=== PATIENT | male | born 1960 | race Hispanic/Latino ===

== ENCOUNTER 2022-04-26 03:10 | Inpatient (IN) | payer OTHER ==
[2022-04-26] MEDS ORDERED: SODIUM CHLORIDE 0.9% 1000 ML 1,000 ML IV ONE (03:42)
[2022-04-26] MEDS ORDERED: PANTOPRAZOLE 40 MG INJ IV ONE (03:42)
[2022-04-26 05:09] LABS: Alanine Aminotransferase 10 units/L (7-56); Albumin 2.8 g/dL (3.9-5); BUN/Creatinine Ratio 20; Blood Urea Nitrogen 22 mg/dL (9-20); Calcium 8.1 mg/dL (8.4-10.2); Hemolysis Index 4
[2022-04-26 05:10] LABS: INR 1.15 (0.87-1.13)
[2022-04-26 05:21] LABS: Basophils % (Auto) 0.5 % (0.0-1.8); Eosinophils # (Auto) 0.1 K/mm3 (0.0-0.4); Eosinophils % (Auto) 1.7 % (0.0-4.3); Hematocrit 28.5 % (35.5-45.6); Hemoglobin 9.3 gm/dl (11.8-15.2); Mean Corpuscular HGB Conc 33 % (32-34); Mean Corpuscular Volume 92 fl (84-94); Monocytes # (Auto) 0.5 K/mm3 (0.0-0.8); Monocytes % (Auto) 8.9 % (0.0-7.3); Platelet Count 146 K/mm3 (140-440); Red Blood Count 3.09 M/mm3 (3.65-5.03); Red Cell Distribution Width 14.8 % (13.2-15.2)
--- NOTE | 2022-04-26 06:22 | Emergency Department Report ---
<NAYANA PADILLA - Last Filed: 04/26/22 10:00> ED GI Bleed HPI - General Chief complaint: GI Bleed Stated complaint: RECTAL BLEEDING Time Seen by Provider: 04/26/22 03:42 - Related Data Home Medications Medication Instructions Recorded Confirmed Last Taken Docusate Sodium [Colace ORAL LIQ] 100 mg PO QDAY 04/26/22 04/26/22 Unknown Duloxetine HCl [Cymbalta] 20 mg PO QDAY 04/26/22 04/26/22 Unknown Pantoprazole [Protonix TAB] 20 mg PO QDAY 04/26/22 04/26/22 Unknown QUEtiapine [SEROquel] 100 mg PO HS 04/26/22 04/26/22 Unknown Thiamine [Vitamin B-1] 100 mg PO QDAY 04/26/22 04/26/22 Unknown carvediloL [Coreg] 3.125 mg PO BID 04/26/22 04/26/22 Unknown Allergies Allergy/AdvReac Type Severity Reaction Status Date / Time No Known Allergies Allergy Verified 04/26/22 04:02 ED Past Medical Hx - Medications Home Medications: Home Medications Medication Instructions Recorded Confirmed Last Taken Type Docusate Sodium [Colace ORAL LIQ] 100 mg PO QDAY 04/26/22 04/26/22 Unknown History Duloxetine HCl [Cymbalta] 20 mg PO QDAY 04/26/22 04/26/22 Unknown History Pantoprazole [Protonix TAB] 20 mg PO QDAY 04/26/22 04/26/22 Unknown History QUEtiapine [SEROquel] 100 mg PO HS 04/26/22 04/26/22 Unknown History Thiamine [Vitamin B-1] 100 mg PO QDAY 04/26/22 04/26/22 Unknown History carvediloL [Coreg] 3.125 mg PO BID 04/26/22 04/26/22 Unknown History ED Course - Consultations Consultation #1: 04/26/22 09:52 Dr Ailyn Matamoros consulted who accept this patient for Dr Martinez and wanted GI consulted as well as this patient might needed to be scoped source of bleeding Consultation #2: 04/26/22 10:01 Dr Nicole consulted who plan to follow up with this patient for likely scope ED Medical Decision Making - Lab Data Result diagrams: 04/26/22 04:42 04/26/22 03:42 - Radiology Data FINDINGS: LOWER CHEST: Moderate basilar effusions with associated atelectasis. LIVER: Cirrhotic configuration. GALLBLADDER: No significant abnormality. BILE DUCTS: No significant abnormality. PANCREAS: No significant abnormality. SPLEEN: Enlarged measuring 17.7 cm ADRENALS: No significant abnormality. RIGHT KIDNEY / URETER: No significant abnormality. LEFT KIDNEY / URETER: No significant abnormality. STOMACH / SMALL BOWEL: No significant abnormality. COLON: Mild mucosal enhancement with questionable areas of mild thickening. APPENDIX: No significant abnormality. PERITONEUM: No free fluid. No free air. No fluid collection. LYMPH NODES: No significant adenopathy. 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 Small varices at the distal esophageal region. URINARY BLADDER: Symmetric thickening. REPRODUCTIVE ORGANS: No significant abnormality. ADDITIONAL FINDINGS: None. SKELETAL SYSTEM: No significant abnormality. IMPRESSION: 1. Evaluation limited by positioning. 2. Moderate basilar effusions with associated atelectasis. 3. Possible mild colitis. 4. Mild symmetric bladder wall thickening. 5. Cirrhosis with splenomegaly and varices/recanalization of the paraumbilical vein. - Medical Decision Making Lab reviewed and noted with low H&H with no previous visit or labs will assume this to be acute blood loss anemia -- and consider admission and have GI consulted. Dr Robertson consulted who accept pt for Dr Diggs -- Dr Nicole GI will be consulted as well. ED Disposition Clinical Impression: Colitis, Anemia, blood loss, Splenomegaly, Varices of spleen, Positive occult stool blood test GI bleeding Qualifiers: GI bleed type/associated pathology: unspecified gastrointestinal hemorrhage type Qualified Code(s): K92.2 - Gastrointestinal hemorrhage, unspecified Liver cirrhosis Qualifiers: Hepatic cirrhosis type: unspecified hepatic cirrhosis Ascites presence: unspecified Qualified Code(s): K74.60 - Unspecified cirrhosis of liver Disposition: ADMITTED INPATIENT Is pt being admited?: Yes Does the pt Need Aspirin: No Condition: Stable Time of Disposition: 10:01 <ARMIN MCKENZIE - Last Filed: 04/28/22 06:05> ED GI Bleed HPI - General Source: patient, EMS Mode of arrival: Stretcher Limitations: No Limitations - History of Present Illness Initial comments: PATIENT IS FROM [facility] AND HAS THE COMPLAINT OF A GI BLEED X1 EPISODE complaint: blood streaked stool -: hour(s) Radiation: none Consistency: now resolved Improves with: none Worsens with: none ED Review of Systems ROS: Stated complaint: RECTAL BLEEDING Other details as noted in HPI Comment: Unobtainable due to pts medical conditions ED Past Medical Hx - Past Medical History Previous Medical History?: No Hx Hypertension: No ED Physical Exam - General Limitations: No Limitations General appearance: other (NON VERABL BASLINE ) - Head Head exam: Present: atraumatic, normocephalic - Eye Eye exam: Present: normal appearance - ENT ENT exam: Present: mucous membranes moist - Neck Neck exam: Present: normal inspection - Respiratory Respiratory exam: Present: normal lung sounds bilaterally. Absent: respiratory distress - Cardiovascular Cardiovascular Exam: Present: regular rate, normal rhythm. Absent: systolic murmur, diastolic murmur, rubs, gallop - GI/Abdominal GI/Abdominal exam: Present: soft - Rectal Rectal exam: Present: deferred, heme (+) stool - Extremities Exam Extremities exam: Present: normal inspection - Back Exam Back exam: Present: normal inspection - Neurological Exam Neurological exam: Present: alert, oriented X3 - Psychiatric Psychiatric exam: Present: normal affect, normal mood - Skin Skin exam: Present: warm, dry, intact, normal color. Absent: rash ED Course Vital Signs 04/26/22 04/26/22 04/26/22 06:31 06:46 07:00 Temperature Pulse Rate 119 H 88 106 H Respiratory 13 15 13 Rate Blood Pressure 98/60 97/56 97/65 O2 Sat by Pulse 99 100 99 Oximetry 04/26/22 04/26/22 04/26/22 07:16 07:30 08:09 Temperature Pulse Rate 101 H 104 H 107 H Respiratory 12 12 11 L Rate Blood Pressure 82/47 86/50 O2 Sat by Pulse 100 100 99 Oximetry 04/26/22 04/26/22 04/26/22 09:00 10:01 11:01 Temperature Pulse Rate 98 H 113 H 103 H Respiratory 12 12 12 Rate Blood Pressure 86/50 92/62 97/62 O2 Sat by Pulse 100 99 100 Oximetry 04/26/22 04/26/22 12:01 13:10 Temperature 98.3 F Pulse Rate 104 H 116 H Respiratory 11 L 19 Rate Blood Pressure 91/58 102/75 O2 Sat by Pulse 100 93 Oximetry ED Medical Decision Making - Lab Data Result diagrams: 04/27/22 21:46 04/26/22 03:42 - Medical Decision Making WORK UP SHWOED REYNALDO H.H AND VSS , HANDED OVER TO DR DE LEON AT [address] DISPO AND ADMISSION Critical care attestation.: If time is entered above; I have spent that time in minutes in the direct care of this critically ill patient, excluding procedure time.
--- NOTE | 2022-04-26 08:36 | Cat Scan Report ---
CT ABDOMEN AND PELVIS WITH CONTRAST INDICATION / CLINICAL INFORMATION: PAIN. TECHNIQUE: Axial CT images were obtained through the abdomen and pelvis after Omnipaque 350, 100 cc I V contrast. All CT scans at this location are performed using CT dose reduction for ALARA by means o f automated exposure control. Evaluation is limited by positioning. COMPARISON: None available. FINDINGS: LOWER CHEST: Moderate basilar effusions with associated atelectasis. LIVER: Cirrhotic configuration. GALLBLADDER: No significant abnormality. BILE DUCTS: No significant abnormality. PANCREAS: No significant abnormality. SPLEEN: Enlarged measuring 17.7 cm ADRENALS: No significant abnormality. RIGHT KIDNEY / URETER: No significant abnormality. LEFT KIDNEY / URETER: No significant abnormality. STOMACH / SMALL BOWEL: No significant abnormality. COLON: Mild mucosal enhancement with questionable areas of mild thickening. APPENDIX: No significant abnormality. PERITONEUM: No free fluid. No free air. No fluid collection. LYMPH NODES: No significant adenopathy. 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 Small va rices at the distal esophageal region. URINARY BLADDER: Symmetric thickening. REPRODUCTIVE ORGANS: No significant abnormality. ADDITIONAL FINDINGS: None. SKELETAL SYSTEM: No significant abnormality. IMPRESSION: 1. Evaluation limited by positioning. 2. Moderate basilar effusions with associated atelectasis. 3. Possible mild colitis. 4. Mild symmetric bladder wall thickening. 5. Cirrhosis with splenomegaly and varices/recanalization of the paraumbilical vein. Signer Name: Steve Crain MD Signed: 04/26/2022 8:32 AM Workstation Name: [id number]
[2022-04-26] MEDS ORDERED: ONDANSETRON 4 MG/2 ML INJ IV PRN (09:53)
--- NOTE | 2022-04-26 16:53 | History and Physical Report ---
History of Present Illness Date of examination: 04/26/22 Date of admission: 04/26/22 09:53 Chief complaint: GI bleed Medications and Allergies Allergies Allergy/AdvReac Type Severity Reaction Status Date / Time No Known Allergies Allergy Verified 04/26/22 04:02 Home Medications Medication Instructions Recorded Confirmed Last Taken Type Docusate Sodium [Colace ORAL LIQ] 100 mg PO QDAY 04/26/22 04/26/22 Unknown History Duloxetine HCl [Cymbalta] 20 mg PO QDAY 04/26/22 04/26/22 Unknown History Pantoprazole [Protonix TAB] 20 mg PO QDAY 04/26/22 04/26/22 Unknown History QUEtiapine [SEROquel] 100 mg PO HS 04/26/22 04/26/22 Unknown History Thiamine [Vitamin B-1] 100 mg PO QDAY 04/26/22 04/26/22 Unknown History carvediloL [Coreg] 3.125 mg PO BID 04/26/22 04/26/22 Unknown History Active Meds: Active Medications Acetaminophen (Acetaminophen 325 Mg Tab) 650 mg PO Q4H PRN PRN Reason: Pain MILD(1-3)/Fever >100.5/JONES Carvedilol (Carvedilol 3.125 Mg Tab) 3.125 mg PO BID YASH Duloxetine HCl (Duloxetine 20 Mg Cap) 20 mg PO QDAY [facility] Sodium Chloride (Nacl 0.9% 1000 Ml) 1,000 mls @ 75 mls/hr IV DIRECT YASH Morphine Sulfate (Morphine 2 Mg/1 Ml Inj) 2 mg IV Q4H PRN PRN Reason: Pain, Moderate (4-6) Ondansetron HCl (Ondansetron 4 Mg/2 Ml Inj) 4 mg IV Q8H PRN PRN Reason: Nausea And Vomiting Pantoprazole Sodium (Pantoprazole 20 Mg Tab) 20 mg PO QDAY [facility] Quetiapine Fumarate (Quetiapine 100 Mg Tab) 100 mg PO HS [facility] Sodium Chloride (Sodium Chloride 0.9% 10 Ml Flush Syringe) 10 ml IV BID [facility] Last Admin: 04/26/22 13:38 Dose: Not Given Sodium Chloride (Sodium Chloride 0.9% 10 Ml Flush Syringe) 10 ml IV PRN PRN PRN Reason: LINE FLUSH Thiamine HCl (Thiamine 100 Mg Tab) 100 mg PO QDAY [facility] Exam - Constitutional Vitals: Temp Pulse Resp BP Pulse Ox 97.8 F 114 H 17 109/69 100 04/26/22 14:58 04/26/22 14:58 04/26/22 14:58 04/26/22 14:58 04/26/22 14:58 Results - Labs CBC & Chem 7: 04/26/22 04:42 04/26/22 03:42 Labs: Abnormal lab results 04/26/22 04/26/22 04/26/22 Range/Units 03:42 04:42 04:42 RBC 3.09 L (3.65-5.03) M/mm3 Hgb 9.3 L (11.8-15.2) gm/dl Hct 28.5 L (35.5-45.6) % Graham % (Auto) 8.9 H (0.0-7.3) % Lymph # (Auto) 1.0 L (1.2-5.4) K/mm3 Seg Neutrophils % 72.9 H (40.0-70.0) % PT 16.4 H (12.2-14.9) Sec. INR 1.15 H (0.87-1.13) Chloride 111.4 H (98-107) mmol/L BUN 22 H (9-20) mg/dL Glucose 104 H (75-100) mg/dL Calcium 8.1 L (8.4-10.2) mg/dL Alkaline Phosphatase 140 H (35-129) units/L Total Protein 6.2 L (6.3-8.2) g/dL Albumin 2.8 L (3.9-5) g/dL Assessment and Plan -- GI bleed --Acute colitis
[2022-04-26] MEDS: carvediloL 3.125 MG TAB PO SCH (21:03)
[2022-04-26] MEDS: QUEtiapine 100 MG TAB PO SCH (21:03)
[2022-04-26 23:58] LABS: Hematocrit 26.5 % (35.5-45.6); Hemoglobin 8.9 gm/dl (11.8-15.2)
--- NOTE | 2022-04-27 08:15 | Gastroenterology Consultation ---
History of Present Illness - Reason for Consult Consult date: 04/27/22 GI bleeding Requesting physician: NAYANA PADILLA - History of Present Illness [facility] episode of rectal bleeding Patient poor historian patient history obtained from chart and speaking with nursing staff Patient denies any GI bleeding Patient reports: Medical history none surgical history none Home medications none allergies none Denies tobacco or alcohol use, denies family history colorectal cancer Obtained/updated/reviewed patient's current medications Medications and Allergies Allergies Allergy/AdvReac Type Severity Reaction Status Date / Time No Known Allergies Allergy Verified 04/26/22 04:02 Home Medications Medication Instructions Recorded Confirmed Last Taken Type Docusate Sodium [Colace ORAL LIQ] 100 mg PO QDAY 04/26/22 04/26/22 Unknown History Duloxetine HCl [Cymbalta] 20 mg PO QDAY 04/26/22 04/26/22 Unknown History Pantoprazole [Protonix TAB] 20 mg PO QDAY 04/26/22 04/26/22 Unknown History QUEtiapine [SEROquel] 100 mg PO HS 04/26/22 04/26/22 Unknown History Thiamine [Vitamin B-1] 100 mg PO QDAY 04/26/22 04/26/22 Unknown History carvediloL [Coreg] 3.125 mg PO BID 04/26/22 04/26/22 Unknown History Active Meds: Active Medications Acetaminophen (Acetaminophen 325 Mg Tab) 650 mg PO Q4H PRN PRN Reason: Pain MILD(1-3)/Fever >100.5/JONES Carvedilol (Carvedilol 3.125 Mg Tab) 3.125 mg PO BID [facility] Last Admin: 04/26/22 21:03 Dose: 3.125 mg Duloxetine HCl (Duloxetine 20 Mg Cap) 20 mg PO QDAY [facility] Sodium Chloride (Nacl 0.9% 1000 Ml) 1,000 mls @ 75 mls/hr IV DIRECT [facility] Morphine Sulfate (Morphine 2 Mg/1 Ml Inj) 2 mg IV Q4H PRN PRN Reason: Pain, Moderate (4-6) Ondansetron HCl (Ondansetron 4 Mg/2 Ml Inj) 4 mg IV Q8H PRN PRN Reason: Nausea And Vomiting Pantoprazole Sodium (Pantoprazole 20 Mg Tab) 20 mg PO QDAY [facility] Quetiapine Fumarate (Quetiapine 100 Mg Tab) 100 mg PO HS [facility] Last Admin: 04/26/22 21:03 Dose: 100 mg Sodium Chloride (Sodium Chloride 0.9% 10 Ml Flush Syringe) 10 ml IV BID [facility] Last Admin: 04/26/22 21:03 Dose: 10 ml Sodium Chloride (Sodium Chloride 0.9% 10 Ml Flush Syringe) 10 ml IV PRN PRN PRN Reason: LINE FLUSH Thiamine HCl (Thiamine 100 Mg Tab) 100 mg PO QDAY [facility] Review of Systems - Review of Systems All systems: negative (10 Systems reviewed and negative except as mentioned above in the history of present illness) Exam - Constitutional Vital Signs: Temp Pulse Resp BP Pulse Ox 97.7 F 116 H 18 98/62 97 04/27/22 04:05 04/27/22 04:05 04/27/22 04:05 04/27/22 04:05 04/27/22 04:05 General appearance: cachectic - EENT Eyes: EOM intact - Neck Neck: supple - Respiratory Respiratory effort: normal - Cardiovascular Rhythm: regular - Gastrointestinal General gastrointestinal: Present: soft, non-tender - Integumentary Integumentary: Present: dry, rash - Musculoskeletal Musculoskeletal: normal - Neurologic Neurological: other (Oriented to year, location, person) - Labs CBC & Chem 7: 04/27/22 08:31 04/26/22 03:42 Lab Results: Laboratory Results - last 24 hr 04/26/22 04/26/22 17:09 23:21 Hgb 8.9 L Hct 26.5 L POC Glucose 98 Assessment and Plan Spoke with staff, no bleeding here in the hospital Patient with normocytic anemia Hemoglobin slight downward trend but no overt bleeding Cirrhosis and possible colitis noted on imaging no patient denies history of liver disease PLAN: No overt bleeding, hemoglobin essentially stable with minimal decline over 3 blood draws, patient does not require urgent endoscopic evaluation. Recommend feeding patient, monitoring hemoglobin over time, as long as remains above 8 patient with no continued bleeding can discharge with close outpatient follow-up with GI for full outpatient evaluation GI will sign off please call us back if patient has overt bleeding or if we can be of any further assistance - Patient Problems (1) Anemia, blood loss Current Visit: Yes Status: Acute (2) GI bleeding Current Visit: Yes Status: Acute Qualifiers: GI bleed type/associated pathology: unspecified gastrointestinal hemorrhage type Qualified Code(s): K92.2 - Gastrointestinal hemorrhage, unspecified (3) Liver cirrhosis Current Visit: Yes Status: Acute Qualifiers: Hepatic cirrhosis type: unspecified hepatic cirrhosis Ascites presence: unspecified Qualified Code(s): K74.60 - Unspecified cirrhosis of liver (4) Positive occult stool blood test Current Visit: Yes Status: Acute
[2022-04-27 08:47] LABS: Hematocrit 24.8 % (35.5-45.6); Hemoglobin 8.4 gm/dl (11.8-15.2)
[2022-04-27] MEDS: DULoxetine 20 MG CAP PO SCH (10:09)
[2022-04-27] MEDS: THIAMINE 100 MG TAB PO SCH (10:10)
[2022-04-27] MEDS: carvediloL 3.125 MG TAB PO SCH (10:10)
[2022-04-27] MEDS: PANTOPRAZOLE 20 MG TAB PO SCH (10:10)
--- NOTE | 2022-04-27 12:22 | Progress Note ---
Assessment and Plan -- GI bleed --Acute colitis Subjective Date of service: 04/27/22 Interval history: Patient seen and examined. Medical records and medication list reviewed. No acute event overnight noted by the RN. Patient denies any chest pain or difficulty breathing. Patient is tolerating diet. remains restraint for confusion and prevent fall Discussed plan of care at bedside with RN Pending dc to SNF. Objective - Exam Narrative Exam: GENERAL: well-developed malnourished WM lying on bed appeared to be in no discomfort. HEENT: Normocephalic. Atraumatic. No conjunctival congestion or icterus. Patient has moist mucous membranes. NECK: Supple. Trachea midline. CHEST/LUNGS: Clear to auscultated bilaterally, breathing nonlabored. No wheezes crackles or rhonchi. HEART/CARDIOVASCULAR: Regular in rate and rhythm. S1 and S2 positive. ABDOMEN: Abdomen is soft, nontender. Patient has normal bowel sounds. SKIN: There is no rash. Warm and dry. NEURO: No focal motor deficit. Follows command. confused MUSCULOSKELETAL: No joint effusion or tenderness. EXTRIMITY: No edema, no cyanosis or clubbing. PSYCH: Cooperative not oriented to time place or person. - Constitutional Vitals: Vital Signs - 12hr 04/27/22 04/27/22 04/27/22 01:00 04:05 08:40 Temperature 97.7 F 98.0 F Pulse Rate 116 H 111 H Respiratory 18 18 Rate Blood Pressure 98/62 93/66 O2 Sat by Pulse 96 97 100 Oximetry - Labs CBC & Chem 7: 05/03/22 04:23 05/03/22 04:23 Labs: Abnormal lab results 04/26/22 04/27/22 Range/Units 23:21 08:31 Hgb 8.9 L 8.4 L (11.8-15.2) gm/dl Hct 26.5 L 24.8 L (35.5-45.6) %
[2022-04-27 12:41] LABS: Hemoglobin 8.8 gm/dl (11.8-15.2)
--- NOTE | 2022-04-27 17:44 | Event Note ---
Date: 04/27/22 There is patient need for patient having rectal bleeding She reports patient had some bright red blood per rectum with no stool. She reports was not a large amount. Hemodynamic stable. Patient feeling fine otherwise Is not consistent with major GI bleeding. Continue to monitor, otherwise plan is unchanged However, please do call GI back if patient has significant overt GI blood loss Dr. Hernandez is currently well control instructor for the week starting now
[2022-04-27] MEDS: QUEtiapine 100 MG TAB PO SCH (21:48)
[2022-04-27] MEDS: METOPROLOL TARTRATE 25 MG TAB PO SCH (21:48)
[2022-04-27 22:01] LABS: Hematocrit 26.9 % (35.5-45.6)
[2022-04-28] MEDS: METOPROLOL TARTRATE 25 MG TAB PO SCH ×3 (10:34→21:12)
[2022-04-28] MEDS: THIAMINE 100 MG TAB PO SCH ×2 (10:34→12:56)
[2022-04-28] MEDS: PANTOPRAZOLE 20 MG TAB PO SCH ×2 (10:34→12:56)
[2022-04-28] MEDS: DULoxetine 20 MG CAP PO SCH ×2 (10:34→12:56)
--- NOTE | 2022-04-28 11:50 | Progress Note ---
Assessment and Plan -- GI bleed --Acute colitis Subjective Date of service: 04/28/22 Interval history: Patient seen and examined. Medical records and medication list reviewed. No acute event overnight noted by the RN. Patient denies any chest pain or difficulty breathing. Patient is tolerating diet. remains restraint for confusion and prevent fall Discussed plan of care at bedside with RN Pending dc to SNF. Objective - Exam Narrative Exam: GENERAL: well-developed malnourished WM lying on bed appeared to be in no discomfort. HEENT: Normocephalic. Atraumatic. No conjunctival congestion or icterus. Patient has moist mucous membranes. NECK: Supple. Trachea midline. CHEST/LUNGS: Clear to auscultated bilaterally, breathing nonlabored. No wheezes crackles or rhonchi. HEART/CARDIOVASCULAR: Regular in rate and rhythm. S1 and S2 positive. ABDOMEN: Abdomen is soft, nontender. Patient has normal bowel sounds. SKIN: There is no rash. Warm and dry. NEURO: No focal motor deficit. Follows command. confused MUSCULOSKELETAL: No joint effusion or tenderness. EXTRIMITY: No edema, no cyanosis or clubbing. PSYCH: Cooperative not oriented to time place or person. - Constitutional Vitals: Vital Signs - 12hr 04/28/22 04/28/22 03:17 08:24 Temperature 98.0 F 98.4 F Pulse Rate 116 H 113 H Respiratory 18 18 Rate Blood Pressure 115/88 103/77 O2 Sat by Pulse 99 93 Oximetry - Labs CBC & Chem 7: 05/03/22 04:23 05/03/22 04:23 Labs: Abnormal lab results 04/27/22 04/27/22 Range/Units 12:11 21:46 Hgb 8.8 L 9.0 L (11.8-15.2) gm/dl Hct 27.0 L 26.9 L (35.5-45.6) %
[2022-04-28 18:08] LABS: Hematocrit 28.2 % (35.5-45.6); Hemoglobin 9.7 gm/dl (11.8-15.2); Mean Corpuscular HGB Conc 34 % (32-34); Mean Corpuscular Volume 91 fl (84-94); Platelet Count 131 K/mm3 (140-440); Red Cell Distribution Width 15.3 % (13.2-15.2)
[2022-04-28 18:17] LABS: BUN/Creatinine Ratio 17; Blood Urea Nitrogen 20 mg/dL (9-20); Calcium 8.7 mg/dL (8.4-10.2); Hemolysis Index 31
[2022-04-28] MEDS: QUEtiapine 100 MG TAB PO SCH (21:10)
[2022-04-29] MEDS: MORPHINE 2 MG/1 ML INJ IV PRN (00:21)
[2022-04-29] MEDS: PANTOPRAZOLE 20 MG TAB PO SCH (10:51)
[2022-04-29] MEDS: METOPROLOL TARTRATE 25 MG TAB PO SCH ×2 (10:51→21:41)
[2022-04-29] MEDS: DULoxetine 20 MG CAP PO SCH (10:51)
[2022-04-29] MEDS: THIAMINE 100 MG TAB PO SCH (10:51)
[2022-04-29] MEDS ORDERED: HYDROCORTISONE 2.5% RECT CREAM 28.35 GM PR PRN (12:44)
[2022-04-29] MEDS: QUEtiapine 100 MG TAB PO SCH (21:41)
[2022-04-29] MEDS: SODIUM CHLORIDE 0.9% 1000 ML 1,000 ML IV SCH (21:51)
[2022-04-30] MEDS: MORPHINE 2 MG/1 ML INJ IV PRN (01:33)
[2022-04-30 05:27] LABS: Basophils % (Auto) 0.5 % (0.0-1.8); Eosinophils # (Auto) 0.1 K/mm3 (0.0-0.4); Eosinophils % (Auto) 2.4 % (0.0-4.3); Hematocrit 25.8 % (35.5-45.6); Hemoglobin 8.4 gm/dl (11.8-15.2); Lymphocytes # (Auto) 1.5 K/mm3 (1.2-5.4); Lymphocytes % (Auto) 27.4 % (13.4-35.0); Mean Corpuscular HGB Conc 33 % (32-34); Mean Corpuscular Volume 93 fl (84-94); Monocytes # (Auto) 0.5 K/mm3 (0.0-0.8); Monocytes % (Auto) 8.9 % (0.0-7.3); Platelet Count 124 K/mm3 (140-440); Red Blood Count 2.77 M/mm3 (3.65-5.03); Red Cell Distribution Width 15.5 % (13.2-15.2)
[2022-04-30 06:14] LABS: Calcium 8.2 mg/dL (8.4-10.2)
[2022-04-30] MEDS: PANTOPRAZOLE 20 MG TAB PO SCH (10:17)
[2022-04-30] MEDS: THIAMINE 100 MG TAB PO SCH (10:17)
[2022-04-30] MEDS: DULoxetine 20 MG CAP PO SCH (10:17)
[2022-04-30] MEDS: METOPROLOL TARTRATE 25 MG TAB PO SCH ×2 (10:18→22:46)
[2022-04-30] MEDS: SODIUM CHLORIDE 0.9% 1000 ML 1,000 ML IV SCH (11:42)
--- NOTE | 2022-04-30 14:49 | Progress Note ---
Assessment and Plan ^[age] y/o WM with h/o HTN, possible dementia and on antidepressant presented to ER from [facility] [place] with rectal bleeding. H/H stable, evaluated by GI but no plan for endoscopy. Plan to monitor with PPI. Patient did have streak of blood with stool following admission - thought for hemorrhoids, started on steroid DC. Cont abx for colitis. Assessment and plan -- GI bleed/rectal bleeding - likely from hemorrhoids Placed on steroid DC, monitor h/h no plan for endoscopy --Acute colitis, cont abx --h/o depression, cont home meds -- HTN, cont coreg --Possible dementia, supportive care --DVT Px, SCD --pending dc to SNF, pending authorization Subjective Date of service: 04/30/22 Interval history: Patient seen and examined. Medical records and medication list reviewed. No acute event overnight noted by the RN. Patient denies any chest pain or difficulty breathing. Patient is tolerating diet. remains restraint for confusion and prevent fall Discussed plan of care at bedside with RN Pending dc to SNF. Objective - Exam Narrative Exam: GENERAL: well-developed malnourished WM lying on bed appeared to be in no discomfort. HEENT: Normocephalic. Atraumatic. No conjunctival congestion or icterus. Patient has moist mucous membranes. NECK: Supple. Trachea midline. CHEST/LUNGS: Clear to auscultated bilaterally, breathing nonlabored. No wheezes crackles or rhonchi. HEART/CARDIOVASCULAR: Regular in rate and rhythm. S1 and S2 positive. ABDOMEN: Abdomen is soft, nontender. Patient has normal bowel sounds. SKIN: There is no rash. Warm and dry. NEURO: No focal motor deficit. Follows command. confused MUSCULOSKELETAL: No joint effusion or tenderness. EXTRIMITY: No edema, no cyanosis or clubbing. PSYCH: Cooperative not oriented to time place or person. - Constitutional Vitals: Vital Signs - 12hr 04/30/22 04/30/22 04/30/22 03:27 08:11 09:07 Temperature 97.6 F 98.3 F Pulse Rate 73 70 Respiratory 17 Rate Blood Pressure 99/57 86/52 O2 Sat by Pulse 98 96 97 Oximetry 04/30/22 04/30/22 04/30/22 10:16 10:18 11:28 Temperature 97.8 F Pulse Rate 70 65 Respiratory Rate Blood Pressure 94/58 94/58 90/58 O2 Sat by Pulse 98 Oximetry - Labs CBC & Chem 7: 04/30/22 04:50 04/30/22 04:50 Labs: Abnormal lab results 04/30/22 04/30/22 Range/Units 04:50 04:50 RBC 2.77 L (3.65-5.03) M/mm3 Hgb 8.4 L (11.8-15.2) gm/dl Hct 25.8 L (35.5-45.6) % RDW 15.5 H (13.2-15.2) % Plt Count 124 L (140-440) K/mm3 Cross % (Auto) 8.9 H (0.0-7.3) % Chloride 108.7 H (98-107) mmol/L Carbon Dioxide 19 L (22-30) mmol/L BUN 22 H (9-20) mg/dL Creatinine 1.4 H (0.8-1.3) mg/dL Calcium 8.2 L (8.4-10.2) mg/dL
--- NOTE | 2022-04-30 14:49 | Progress Note ---
Assessment and Plan -- GI bleed --Acute colitis Subjective Date of service: 04/29/22 Interval history: Patient seen and examined. Medical records and medication list reviewed. No acute event overnight noted by the RN. Patient denies any chest pain or difficulty breathing. Patient is tolerating diet. remains restraint for confusion and prevent fall Discussed plan of care at bedside with RN Pending dc to SNF. Objective - Exam Narrative Exam: GENERAL: well-developed malnourished WM lying on bed appeared to be in no discomfort. HEENT: Normocephalic. Atraumatic. No conjunctival congestion or icterus. Patient has moist mucous membranes. NECK: Supple. Trachea midline. CHEST/LUNGS: Clear to auscultated bilaterally, breathing nonlabored. No wheezes crackles or rhonchi. HEART/CARDIOVASCULAR: Regular in rate and rhythm. S1 and S2 positive. ABDOMEN: Abdomen is soft, nontender. Patient has normal bowel sounds. SKIN: There is no rash. Warm and dry. NEURO: No focal motor deficit. Follows command. confused MUSCULOSKELETAL: No joint effusion or tenderness. EXTRIMITY: No edema, no cyanosis or clubbing. PSYCH: Cooperative not oriented to time place or person. - Constitutional Vitals: Vital Signs - 12hr 04/30/22 04/30/22 04/30/22 03:27 08:11 09:07 Temperature 97.6 F 98.3 F Pulse Rate 73 70 Respiratory 17 Rate Blood Pressure 99/57 86/52 O2 Sat by Pulse 98 96 97 Oximetry 04/30/22 04/30/22 04/30/22 10:16 10:18 11:28 Temperature 97.8 F Pulse Rate 70 65 Respiratory Rate Blood Pressure 94/58 94/58 90/58 O2 Sat by Pulse 98 Oximetry - Labs CBC & Chem 7: 05/03/22 04:23 05/03/22 04:23 Labs: Abnormal lab results 04/30/22 04/30/22 Range/Units 04:50 04:50 RBC 2.77 L (3.65-5.03) M/mm3 Hgb 8.4 L (11.8-15.2) gm/dl Hct 25.8 L (35.5-45.6) % RDW 15.5 H (13.2-15.2) % Plt Count 124 L (140-440) K/mm3 [place] % (Auto) 8.9 H (0.0-7.3) % Chloride 108.7 H (98-107) mmol/L Carbon Dioxide 19 L (22-30) mmol/L BUN 22 H (9-20) mg/dL Creatinine 1.4 H (0.8-1.3) mg/dL Calcium 8.2 L (8.4-10.2) mg/dL
[2022-04-30] MEDS: QUEtiapine 100 MG TAB PO SCH (22:46)
[2022-05-01] MEDS: SODIUM CHLORIDE 0.9% 1000 ML 1,000 ML IV SCH ×2 (00:55→18:15)
[2022-05-01] MEDS: ACETAMINOPHEN 325 MG TAB PO PRN (00:55)
--- NOTE | 2022-05-01 08:52 | Progress Note ---
Assessment and Plan Assessment and plan: 61y/o WM with h/o HTN, possible dementia and on antidepressant presented to ER from [facility] with rectal bleeding. H/H stable, evaluated by GI but no plan for endoscopy. Plan to monitor with PPI. Patient did have streak of blood with stool following admission - thought for hemorrhoids, started on steroid [place]. Cont abx for colitis. Assessment and plan -- GI bleed/rectal bleeding - likely from hemorrhoids Placed on steroid [place], monitor h/h no plan for endoscopy --Acute colitis, cont abx Tolerating GI soft diet, advance as tolerated --h/o depression, cont home meds Supportive care -- HTN, cont coreg Closely monitor blood pressures and adjust as needed --Possible dementia, supportive care --DVT Px, SCD --pending dc to SNF, pending authorization We will closely monitor the patient and adjust management as needed Plan of care reviewed with the patient and his nurse History Interval history: I have seen and examined the patient at the bedside Patient's chart and medications reviewed Patient has no new complaints No new episodes of rectal bleeding Patient is awaiting placement insurance authorization Vital signs reviewed Hospitalist Physical - Constitutional Vitals: Temp Pulse Resp BP Pulse Ox 97.2 F L 106 H 18 109/69 98 05/01/22 05:15 05/01/22 06:13 05/01/22 06:13 05/01/22 06:13 05/01/22 06:13 General appearance: Present: no acute distress, well-nourished - EENT Eyes: Present: PERRL, EOM intact - Neck Neck: Present: supple, normal ROM - Respiratory Respiratory effort: normal Respiratory: bilateral: diminished, negative: rales, rhonchi, wheezing - Cardiovascular Rhythm: regular Heart Sounds: Present: S1 & S2 - Extremities Extremities: no ischemia, No edema - Abdominal General gastrointestinal: soft, non-tender, non-distended, normal bowel sounds - Integumentary Integumentary: Present: clear, warm - Psychiatric Psychiatric: appropriate mood/affect, cooperative - Neurologic Neurologic: CNII-XII intact, moves all extremities Results - Labs CBC & Chem 7: 04/30/22 04:50 04/30/22 04:50 Labs: Laboratory Last Values WBC 5.5 K/mm3 (4.5-11.0) 04/30/22 04:50 RBC 2.77 M/mm3 (3.65-5.03) L 04/30/22 04:50 Hgb 8.4 gm/dl (11.8-15.2) L 04/30/22 04:50 Hct 25.8 % (35.5-45.6) L 04/30/22 04:50 MCV 93 fl (84-94) 04/30/22 04:50 MCH 30 pg (28-32) 04/30/22 04:50 MCHC 33 % (32-34) 04/30/22 04:50 RDW 15.5 % (13.2-15.2) H 04/30/22 04:50 Plt Count 124 K/mm3 (140-440) L 04/30/22 04:50 Lymph % (Auto) 27.4 % (13.4-35.0) 04/30/22 04:50 [place] % (Auto) 8.9 % (0.0-7.3) H 04/30/22 04:50 Eos % (Auto) 2.4 % (0.0-4.3) 04/30/22 04:50 Baso % (Auto) 0.5 % (0.0-1.8) 04/30/22 04:50 Lymph # (Auto) 1.5 K/mm3 (1.2-5.4) 04/30/22 04:50 [place] # (Auto) 0.5 K/mm3 (0.0-0.8) 04/30/22 04:50 Eos # (Auto) 0.1 K/mm3 (0.0-0.4) 04/30/22 04:50 Baso # (Auto) 0.0 K/mm3 (0.0-0.1) 04/30/22 04:50 Seg Neutrophils % 60.8 % (40.0-70.0) 04/30/22 04:50 Seg Neutrophils # 3.4 K/mm3 (1.8-7.7) 04/30/22 04:50 PT 16.4 Sec. (12.2-14.9) H 04/26/22 04:42 INR 1.15 (0.87-1.13) H 04/26/22 04:42 Sodium 140 mmol/L (137-145) 04/30/22 04:50 Potassium 3.9 mmol/L (3.6-5.0) 04/30/22 04:50 Chloride 108.7 mmol/L (98-107) H 04/30/22 04:50 Carbon Dioxide 19 mmol/L (22-30) L 04/30/22 04:50 Anion Gap 16 mmol/L 04/30/22 04:50 BUN 22 mg/dL (9-20) H 04/30/22 04:50 Creatinine 1.4 mg/dL (0.8-1.3) H 04/30/22 04:50 Estimated GFR 51 ml/min 04/30/22 04:50 BUN/Creatinine Ratio 16 % 04/30/22 04:50 Glucose 90 mg/dL (75-100) 04/30/22 04:50 POC Glucose 98 mg/dL (70-105) 04/26/22 17:09 Lactic Acid 1.90 mmol/L (0.7-2.0) 04/26/22 04:42 Calcium 8.2 mg/dL (8.4-10.2) L 04/30/22 04:50 Total Bilirubin 0.40 mg/dL (0.1-1.2) 04/26/22 03:42 AST 20 units/L (5-40) 04/26/22 03:42 ALT 10 units/L (7-56) 04/26/22 03:42 Alkaline Phosphatase 140 units/L (35-129) H 04/26/22 03:42 Total Protein 6.2 g/dL (6.3-8.2) L 04/26/22 03:42 Albumin 2.8 g/dL (3.9-5) L 04/26/22 03:42 Albumin/Globulin Ratio 0.8 % 04/26/22 03:42 Lipase 57 units/L (13-60) 04/26/22 03:42 Coronavirus (PCR) Negative (Negative) 04/28/22 11:32 P[place]/IV: Voiding Method Condom Catheter Active Medications - Current Medications Current Medications: Generic Name Dose Route Start Last Admin Trade Name Freq PRN Reason Stop Dose Admin Acetaminophen 650 mg 04/26/22 09:53 05/01/22 00:55 Acetaminophen 325 Mg Tab PO 650 mg Q4H PRN Administration Pain MILD(1-3)/Fever >100.5/JONES Duloxetine HCl 20 mg 04/27/22 10:00 04/30/22 10:17 Duloxetine 20 Mg Cap PO 20 mg QDAY YASH Administration Hydrocortisone Acetate 1 applic 04/29/22 12:44 Hydrocortisone 2.5% Rect Cream 28.35 Gm [place] Q8H PRN Hemorrhoids Sodium Chloride 1,000 mls @ 75 mls/hr 04/26/22 17:00 05/01/22 00:55 Nacl 0.9% 1000 Ml IV 75 mls/hr DIRECT YASH Administration Levofloxacin 500 mg 05/01/22 10:00 Levofloxacin 500 Mg Tab PO Q24HR YASH Protocol Metoprolol Tartrate 25 mg 04/27/22 22:00 04/30/22 22:46 Metoprolol Tartrate 25 Mg Tab PO 25 mg BID YASH Administration Metronidazole 500 mg 05/01/22 09:00 Metronidazole 500 Mg Tab PO Q8HR YASH Protocol Morphine Sulfate 2 mg 04/26/22 09:53 04/30/22 01:33 Morphine 2 Mg/1 Ml Inj IV 2 mg Q4H PRN Administration Pain, Moderate (4-6) Ondansetron HCl 4 mg 04/26/22 09:53 Ondansetron 4 Mg/2 Ml Inj IV Q8H PRN Nausea And Vomiting Pantoprazole Sodium 20 mg 04/27/22 10:00 04/30/22 10:17 Pantoprazole 20 Mg Tab PO 20 mg QDAY YASH Administration Quetiapine Fumarate 100 mg 04/26/22 22:00 04/30/22 22:46 Quetiapine 100 Mg Tab PO 100 mg HS YASH Administration Sodium Chloride 10 ml 04/26/22 11:00 04/30/22 22:46 Sodium Chloride 0.9% 10 Ml Flush Syringe IV 10 ml BID YASH Administration Sodium Chloride 10 ml 04/26/22 09:53 Sodium Chloride 0.9% 10 Ml Flush Syringe IV PRN PRN LINE FLUSH Thiamine HCl 100 mg 04/27/22 10:00 04/30/22 10:17 Thiamine 100 Mg Tab PO 100 mg QDAY YASH Administration Nutrition/Malnutrition Assess - Dietary Evaluation Nutrition/Malnutrition Findings: Nutrition Notes Start: 04/26/22 15:10 Freq: Status: Active Protocol: Document 04/30/22 15:14 CM (Rec: 04/30/22 15:23 CM [id number]) Co-Sign 04/30/22 15:14 WW Nutrition Notes Initial or Follow up Brief Note Current Diagnosis Acute Kidney Injury Other Pertinent Diagnosis GI Bleed (Rectum), Liver Cirrhosis Current Diet GI Soft Labs/Tests 04/30: Cl 108.7 CO2 19 BUN 22 Cr 1.4 Pertinent Medications 04/30: Thiamine Weight change and time frame 9.83% wt loss since assessment 04/26 Subjective/Other Information RD follow-up per protocol. Pt unresponsive during visit. 50% Breakfast 04/27 and 100% Lunch 04/29 reported per ADL notes. 0% Breakfast 04/30 per RN tech. GI Symptoms None Food Allergy No Current % PO Poor (25-49%) #1 Nutrition Diagnosis Malnutrition Diagnosis Progress(for reassessment Continues documentation) Nutrition Intervention Change Diet Order: Continue current diet order Add Supplement/Snack (indicate name/kcal Nepro BID /protein ) Provides kCal: 850 Provides Protein (gm) 38 Goal #1 Pt to consume >75% of estimated energy/protein needs through current diet order / supplementation. Goal #2 Pt to mtaintain current wt status within 2.5% during LOS. Follow-Up By: 05/03/22 Additional Comments Monitor %PO intake, wt status, and nutrition-related lab values.
[2022-05-01] MEDS ORDERED: levoFLOXacin 500 MG TAB PO SCH (10:00)
[2022-05-01] MEDS: METOPROLOL TARTRATE 25 MG TAB PO SCH ×2 (10:14→21:01)
[2022-05-01] MEDS: DULoxetine 20 MG CAP PO SCH (10:14)
[2022-05-01] MEDS: THIAMINE 100 MG TAB PO SCH (10:16)
[2022-05-01] MEDS: PANTOPRAZOLE 20 MG TAB PO SCH (10:16)
[2022-05-01] MEDS: metroNIDAZOLE 500 MG TAB PO SCH ×3 (10:16→21:15)
[2022-05-01] MEDS ORDERED: levoFLOXacin 250 MG TAB PO SCH (12:00)
[2022-05-01] MEDS: QUEtiapine 100 MG TAB PO SCH (21:15)
[2022-05-02] MEDS ORDERED: SODIUM CHLORIDE 0.9% 1000 ML 1,000 ML IV ONE (02:31)
[2022-05-02] MEDS: metroNIDAZOLE 500 MG TAB PO SCH ×3 (06:00→21:35)
[2022-05-02 06:24] LABS: Hematocrit 21.9 % (35.5-45.6); Hemoglobin 7.5 gm/dl (11.8-15.2)
[2022-05-02 06:34] LABS: Calcium 7.9 mg/dL (8.4-10.2)
[2022-05-02] MEDS: THIAMINE 100 MG TAB PO SCH (10:39)
[2022-05-02] MEDS: METOPROLOL TARTRATE 25 MG TAB PO SCH ×2 (10:39→21:35)
[2022-05-02] MEDS: DULoxetine 20 MG CAP PO SCH (10:39)
[2022-05-02] MEDS: PANTOPRAZOLE 20 MG TAB PO SCH (10:39)
[2022-05-02] MEDS: SODIUM CHLORIDE 0.9% 1000 ML 1,000 ML IV SCH (10:41)
--- NOTE | 2022-05-02 17:02 | Progress Note ---
Assessment and Plan Assessment and plan: 61y/o WM with h/o HTN, possible dementia and on antidepressant presented to ER from [facility] with rectal bleeding. H/H stable, evaluated by GI but no plan for endoscopy. Plan to monitor with PPI. Patient did have streak of blood with stool following admission - thought for hemorrhoids, started on steroid [place]. Cont abx for colitis. Assessment and plan -- GI bleed/rectal bleeding - likely from hemorrhoids Placed on steroid [place], monitor h/h no plan for endoscopy --Acute colitis, cont abx Tolerating GI soft diet, advance as tolerated --h/o depression, cont home meds Supportive care -- HTN, cont coreg Closely monitor blood pressures and adjust as needed --Possible dementia, supportive care --DVT Px, SCD --pending dc to SNF, pending authorization We will closely monitor the patient and adjust management as needed Plan of care reviewed with the patient and his nurse Patient is stable for discharge pending authorization 05/01; SNF placement pending authorization 05/02; DC to SNF authorization pending History Interval history: I have seen and examined the patient at the bedside Patient's chart and medications reviewed Patient is more alert and awake today Slightly confused No new events reported by the nursing Vital signs noted Pending authorization for SNF placement Hospitalist Physical - Constitutional Vitals: Temp Pulse Resp BP Pulse Ox 98.0 F 78 16 117/81 98 05/02/22 15:25 05/02/22 15:25 05/02/22 15:25 05/02/22 15:25 05/02/22 15:25 General appearance: Present: no acute distress, well-nourished - EENT Eyes: Present: PERRL, EOM intact ENT: hearing intact, clear oral mucosa - Neck Neck: Present: supple, normal ROM - Respiratory Respiratory effort: normal Respiratory: bilateral: diminished, negative: rales, rhonchi, wheezing - Cardiovascular Rhythm: regular Heart Sounds: Present: S1 & S2 - Extremities Extremities: no ischemia, No edema - Abdominal General gastrointestinal: soft, non-tender, non-distended, normal bowel sounds - Integumentary Integumentary: Present: clear, warm - Psychiatric Psychiatric: appropriate mood/affect, cooperative, other (Confused at times) - Neurologic Neurologic: moves all extremities Results - Labs CBC & Chem 7: 05/02/22 05:43 05/02/22 05:43 Labs: Laboratory Last Values WBC 5.5 K/mm3 (4.5-11.0) 04/30/22 04:50 RBC 2.77 M/mm3 (3.65-5.03) L 04/30/22 04:50 Hgb 7.5 gm/dl (11.8-15.2) L 05/02/22 05:43 Hct 21.9 % (35.5-45.6) L 05/02/22 05:43 MCV 93 fl (84-94) 04/30/22 04:50 MCH 30 pg (28-32) 04/30/22 04:50 MCHC 33 % (32-34) 04/30/22 04:50 RDW 15.5 % (13.2-15.2) H 04/30/22 04:50 Plt Count 124 K/mm3 (140-440) L 04/30/22 04:50 Lymph % (Auto) 27.4 % (13.4-35.0) 04/30/22 04:50 [place] % (Auto) 8.9 % (0.0-7.3) H 04/30/22 04:50 Eos % (Auto) 2.4 % (0.0-4.3) 04/30/22 04:50 Baso % (Auto) 0.5 % (0.0-1.8) 04/30/22 04:50 Lymph # (Auto) 1.5 K/mm3 (1.2-5.4) 04/30/22 04:50 [place] # (Auto) 0.5 K/mm3 (0.0-0.8) 04/30/22 04:50 Eos # (Auto) 0.1 K/mm3 (0.0-0.4) 04/30/22 04:50 Baso # (Auto) 0.0 K/mm3 (0.0-0.1) 04/30/22 04:50 Seg Neutrophils % 60.8 % (40.0-70.0) 04/30/22 04:50 Seg Neutrophils # 3.4 K/mm3 (1.8-7.7) 04/30/22 04:50 PT 16.4 Sec. (12.2-14.9) H 04/26/22 04:42 INR 1.15 (0.87-1.13) H 04/26/22 04:42 Sodium 140 mmol/L (137-145) 05/02/22 05:43 Potassium 4.1 mmol/L (3.6-5.0) 05/02/22 05:43 Chloride 111.6 mmol/L (98-107) H 05/02/22 05:43 Carbon Dioxide 22 mmol/L (22-30) 05/02/22 05:43 Anion Gap 11 mmol/L 05/02/22 05:43 BUN 26 mg/dL (9-20) H 05/02/22 05:43 Creatinine 1.4 mg/dL (0.8-1.3) H 05/02/22 05:43 Estimated GFR 51 ml/min 05/02/22 05:43 BUN/Creatinine Ratio 19 % 05/02/22 05:43 Glucose 88 mg/dL (75-100) 05/02/22 05:43 POC Glucose 98 mg/dL (70-105) 04/26/22 17:09 Lactic Acid 1.90 mmol/L (0.7-2.0) 04/26/22 04:42 Calcium 7.9 mg/dL (8.4-10.2) L 05/02/22 05:43 Total Bilirubin 0.40 mg/dL (0.1-1.2) 04/26/22 03:42 AST 20 units/L (5-40) 04/26/22 03:42 ALT 10 units/L (7-56) 04/26/22 03:42 Alkaline Phosphatase 140 units/L (35-129) H 04/26/22 03:42 Total Protein 6.2 g/dL (6.3-8.2) L 04/26/22 03:42 Albumin 2.8 g/dL (3.9-5) L 04/26/22 03:42 Albumin/Globulin Ratio 0.8 % 04/26/22 03:42 Lipase 57 units/L (13-60) 04/26/22 03:42 Coronavirus (PCR) Negative (Negative) 04/28/22 11:32 P[place]/IV: Voiding Method Condom Catheter Active Medications - Current Medications Current Medications: Generic Name Dose Route Start Last Admin Trade Name Freq PRN Reason Stop Dose Admin Acetaminophen 650 mg 04/26/22 09:53 05/01/22 00:55 Acetaminophen 325 Mg Tab PO 650 mg Q4H PRN Administration Pain MILD(1-3)/Fever >100.5/JONES Duloxetine HCl 20 mg 04/27/22 10:00 05/02/22 10:39 Duloxetine 20 Mg Cap PO 20 mg QDAY YASH Administration Hydrocortisone Acetate 1 applic 04/29/22 12:44 Hydrocortisone 2.5% Rect Cream 28.35 Gm [place] Q8H PRN Hemorrhoids Sodium Chloride 1,000 mls @ 125 mls/hr 04/26/22 17:00 05/02/22 10:41 Nacl 0.9% 1000 Ml IV 75 mls/hr DIRECT YASH Administration Levofloxacin 750 mg 05/03/22 10:00 Levofloxacin 750 Mg Tab PO Q48HR YASH Metoprolol Tartrate 25 mg 04/27/22 22:00 05/02/22 10:39 Metoprolol Tartrate 25 Mg Tab PO 25 mg BID YASH Administration Metronidazole 500 mg 05/01/22 09:00 05/02/22 14:24 Metronidazole 500 Mg Tab PO 500 mg Q8HR YASH Administration Protocol Morphine Sulfate 2 mg 04/26/22 09:53 04/30/22 01:33 Morphine 2 Mg/1 Ml Inj IV 2 mg Q4H PRN Administration Pain, Moderate (4-6) Ondansetron HCl 4 mg 04/26/22 09:53 Ondansetron 4 Mg/2 Ml Inj IV Q8H PRN Nausea And Vomiting Pantoprazole Sodium 20 mg 04/27/22 10:00 05/02/22 10:39 Pantoprazole 20 Mg Tab PO 20 mg QDAY YASH Administration Quetiapine Fumarate 100 mg 04/26/22 22:00 05/01/22 21:15 Quetiapine 100 Mg Tab PO 100 mg HS YASH Administration Sodium Chloride 10 ml 04/26/22 11:00 05/02/22 10:39 Sodium Chloride 0.9% 10 Ml Flush Syringe IV 10 ml BID YASH Administration Sodium Chloride 10 ml 04/26/22 09:53 Sodium Chloride 0.9% 10 Ml Flush Syringe IV PRN PRN LINE FLUSH Thiamine HCl 100 mg 04/27/22 10:00 05/02/22 10:39 Thiamine 100 Mg Tab PO 100 mg QDAY YASH Administration Nutrition/Malnutrition Assess - Dietary Evaluation Nutrition/Malnutrition Findings: Nutrition Notes Start: 04/26/22 15:10 Freq: Status: Active Protocol: Document 04/30/22 15:14 CM (Rec: 04/30/22 15:23 CM [email or web address]) Co-Sign 04/30/22 15:14 WW Nutrition Notes Initial or Follow up Brief Note Current Diagnosis Acute Kidney Injury Other Pertinent Diagnosis GI Bleed (Rectum), Liver Cirrhosis Current Diet GI Soft Labs/Tests 04/30: Cl 108.7 CO2 19 BUN 22 Cr 1.4 Pertinent Medications 04/30: Thiamine Weight change and time frame 9.83% wt loss since assessment 04/26 Subjective/Other Information RD follow-up per protocol. Pt unresponsive during visit. 50% Breakfast 04/27 and 100% Lunch 04/29 reported per ADL notes. 0% Breakfast 04/30 per RN tech. GI Symptoms None Food Allergy No Current % PO Poor (25-49%) #1 Nutrition Diagnosis Malnutrition Diagnosis Progress(for reassessment Continues documentation) Nutrition Intervention Change Diet Order: Continue current diet order Add Supplement/Snack (indicate name/kcal Nepro BID /protein ) Provides kCal: 850 Provides Protein (gm) 38 Goal #1 Pt to consume >75% of estimated energy/protein needs through current diet order / supplementation. Goal #2 Pt to mtaintain current wt status within 2.5% during LOS. Follow-Up By: 05/03/22 Additional Comments Monitor %PO intake, wt status, and nutrition-related lab values.
[2022-05-02] MEDS: MORPHINE 2 MG/1 ML INJ IV PRN (21:35)
[2022-05-02] MEDS: QUEtiapine 100 MG TAB PO SCH (21:35)
[2022-05-03] MEDS: metroNIDAZOLE 500 MG TAB PO SCH ×3 (05:34→21:11)
[2022-05-03 05:40] LABS: Hematocrit 24.4 % (35.5-45.6); Hemoglobin 8.3 gm/dl (11.8-15.2)
[2022-05-03] MEDS: DULoxetine 20 MG CAP PO SCH (09:20)
[2022-05-03] MEDS: THIAMINE 100 MG TAB PO SCH (09:20)
[2022-05-03] MEDS: METOPROLOL TARTRATE 25 MG TAB PO SCH ×2 (09:20→21:09)
[2022-05-03] MEDS: PANTOPRAZOLE 20 MG TAB PO SCH (09:20)
--- NOTE | 2022-05-03 09:24 | Progress Note ---
Assessment and Plan Assessment and plan: 61y/o WM with h/o HTN, possible dementia and on antidepressant presented to ER from [facility] with rectal bleeding. H/H stable, evaluated by GI but no plan for endoscopy. Plan to monitor with PPI. Patient did have streak of blood with stool following admission - thought for hemorrhoids, started on steroid [place]. Cont abx for colitis. Patient is hypotensive started on midodrine , blood pressures improved, patient was asymptomatic Assessment and plan -- GI bleed/rectal bleeding - likely from hemorrhoids Placed on steroid [place], monitor h/h no plan for endoscopy --Acute colitis, cont abx Tolerating GI soft diet, advance as tolerated --h/o depression, cont home meds Supportive care -- HTN, cont coreg Closely monitor blood pressures and adjust as needed --Possible dementia, supportive care --DVT Px, SCD --pending dc to SNF, pending authorization We will closely monitor the patient and adjust management as needed Plan of care reviewed with the patient and his nurse Patient is stable for discharge pending authorization 05/01; SNF placement pending authorization 05/02; DC to SNF authorization pending History Interval history: I have seen and examined the patient at the bedside Patient's chart and medications reviewed Patient has been running low blood pressures No new complaints Vital signs noted Hospitalist Physical - Constitutional Vitals: Temp Pulse Resp BP Pulse Ox 97.7 F 75 18 83/47 98 05/03/22 03:34 05/03/22 08:11 05/03/22 03:34 05/03/22 08:11 05/03/22 03:34 General appearance: Present: no acute distress, well-nourished - EENT Eyes: Present: PERRL, EOM intact - Neck Neck: Present: supple, normal ROM - Respiratory Respiratory effort: normal Respiratory: bilateral: diminished, negative: rales, rhonchi, wheezing - Cardiovascular Rhythm: regular Heart Sounds: Present: S1 & S2 - Extremities Extremities: no ischemia, No edema - Abdominal General gastrointestinal: soft, non-tender, non-distended, normal bowel sounds - Integumentary Integumentary: Present: clear, warm - Psychiatric Psychiatric: appropriate mood/affect, cooperative - Neurologic Neurologic: CNII-XII intact, moves all extremities Results - Labs CBC & Chem 7: 05/03/22 04:23 05/03/22 04:23 Labs: Laboratory Last Values WBC 5.5 K/mm3 (4.5-11.0) 04/30/22 04:50 RBC 2.77 M/mm3 (3.65-5.03) L 04/30/22 04:50 Hgb 8.3 gm/dl (11.8-15.2) L 05/03/22 04:23 Hct 24.4 % (35.5-45.6) L 05/03/22 04:23 MCV 93 fl (84-94) 04/30/22 04:50 MCH 30 pg (28-32) 04/30/22 04:50 MCHC 33 % (32-34) 04/30/22 04:50 RDW 15.5 % (13.2-15.2) H 04/30/22 04:50 Plt Count 124 K/mm3 (140-440) L 04/30/22 04:50 Lymph % (Auto) 27.4 % (13.4-35.0) 04/30/22 04:50 [place] % (Auto) 8.9 % (0.0-7.3) H 04/30/22 04:50 Eos % (Auto) 2.4 % (0.0-4.3) 04/30/22 04:50 Baso % (Auto) 0.5 % (0.0-1.8) 04/30/22 04:50 Lymph # (Auto) 1.5 K/mm3 (1.2-5.4) 04/30/22 04:50 [place] # (Auto) 0.5 K/mm3 (0.0-0.8) 04/30/22 04:50 Eos # (Auto) 0.1 K/mm3 (0.0-0.4) 04/30/22 04:50 Baso # (Auto) 0.0 K/mm3 (0.0-0.1) 04/30/22 04:50 Seg Neutrophils % 60.8 % (40.0-70.0) 04/30/22 04:50 Seg Neutrophils # 3.4 K/mm3 (1.8-7.7) 04/30/22 04:50 PT 16.4 Sec. (12.2-14.9) H 04/26/22 04:42 INR 1.15 (0.87-1.13) H 04/26/22 04:42 Sodium 140 mmol/L (137-145) 05/02/22 05:43 Potassium 4.1 mmol/L (3.6-5.0) 05/02/22 05:43 Chloride 111.6 mmol/L (98-107) H 05/02/22 05:43 Carbon Dioxide 22 mmol/L (22-30) 05/02/22 05:43 Anion Gap 11 mmol/L 05/02/22 05:43 BUN 26 mg/dL (9-20) H 05/02/22 05:43 Creatinine 1.2 mg/dL (0.8-1.3) 05/03/22 04:23 Estimated GFR > 60 ml/min 05/03/22 04:23 BUN/Creatinine Ratio 19 % 05/02/22 05:43 Glucose 88 mg/dL (75-100) 05/02/22 05:43 POC Glucose 98 mg/dL (70-105) 04/26/22 17:09 Lactic Acid 1.90 mmol/L (0.7-2.0) 04/26/22 04:42 Calcium 7.9 mg/dL (8.4-10.2) L 05/02/22 05:43 Total Bilirubin 0.40 mg/dL (0.1-1.2) 04/26/22 03:42 AST 20 units/L (5-40) 04/26/22 03:42 ALT 10 units/L (7-56) 04/26/22 03:42 Alkaline Phosphatase 140 units/L (35-129) H 04/26/22 03:42 Total Protein 6.2 g/dL (6.3-8.2) L 04/26/22 03:42 Albumin 2.8 g/dL (3.9-5) L 04/26/22 03:42 Albumin/Globulin Ratio 0.8 % 04/26/22 03:42 Lipase 57 units/L (13-60) 04/26/22 03:42 Coronavirus (PCR) Negative (Negative) 04/28/22 11:32 Pizano/IV: Voiding Method Condom Catheter Active Medications - Current Medications Current Medications: Generic Name Dose Route Start Last Admin Trade Name Raghav PRN Reason Stop Dose Admin Acetaminophen 650 mg 04/26/22 09:53 05/01/22 00:55 Acetaminophen 325 Mg Tab PO 650 mg Q4H PRN Administration Pain MILD(1-3)/Fever >100.5/JONES Duloxetine HCl 20 mg 04/27/22 10:00 05/03/22 09:20 Duloxetine 20 Mg Cap PO 20 mg QDAY YASH Administration Hydrocortisone Acetate 1 applic 04/29/22 12:44 Hydrocortisone 2.5% Rect Cream 28.35 Gm [place] Q8H PRN Hemorrhoids Sodium Chloride 1,000 mls @ 125 mls/hr 04/26/22 17:00 05/02/22 10:41 Nacl 0.9% 1000 Ml IV 75 mls/hr DIRECT YASH Administration Levofloxacin 750 mg 05/03/22 10:00 05/03/22 09:20 Levofloxacin 750 Mg Tab PO 750 mg Q48HR YASH Administration Metoprolol Tartrate 25 mg 04/27/22 22:00 05/03/22 09:20 Metoprolol Tartrate 25 Mg Tab PO Not Given BID YASH Metronidazole 500 mg 05/01/22 09:00 05/03/22 05:34 Metronidazole 500 Mg Tab PO 500 mg Q8HR YASH Administration Protocol Midodrine 10 mg 05/03/22 09:30 05/03/22 09:20 Midodrine 10 Mg Tab PO 05/03/22 11:00 10 mg ONCE@0930 YASH Administration Midodrine 10 mg 05/03/22 12:00 Midodrine 10 Mg Tab PO TID@0800,1200,1600 YASH Morphine Sulfate 2 mg 04/26/22 09:53 05/02/22 21:35 Morphine 2 Mg/1 Ml Inj IV 2 mg Q4H PRN Administration Pain, Moderate (4-6) Ondansetron HCl 4 mg 04/26/22 09:53 Ondansetron 4 Mg/2 Ml Inj IV Q8H PRN Nausea And Vomiting Pantoprazole Sodium 20 mg 04/27/22 10:00 05/03/22 09:20 Pantoprazole 20 Mg Tab PO 20 mg QDAY YASH Administration Quetiapine Fumarate 100 mg 04/26/22 22:00 05/02/22 21:35 Quetiapine 100 Mg Tab PO 100 mg HS YASH Administration Sodium Chloride 10 ml 04/26/22 11:00 05/03/22 09:21 Sodium Chloride 0.9% 10 Ml Flush Syringe IV 10 ml BID YASH Administration Sodium Chloride 10 ml 04/26/22 09:53 Sodium Chloride 0.9% 10 Ml Flush Syringe IV PRN PRN LINE FLUSH Thiamine HCl 100 mg 04/27/22 10:00 05/03/22 09:20 Thiamine 100 Mg Tab PO 100 mg QDAY YASH Administration Nutrition/Malnutrition Assess - Dietary Evaluation Nutrition/Malnutrition Findings: Nutrition Notes Start: 04/26/22 15:10 Freq: Status: Active Protocol: Document 04/30/22 15:14 CM (Rec: 04/30/22 15:23 CM [id number]) Co-Sign 04/30/22 15:14 WW Nutrition Notes Initial or Follow up Brief Note Current Diagnosis Acute Kidney Injury Other Pertinent Diagnosis GI Bleed (Rectum), Liver Cirrhosis Current Diet GI Soft Labs/Tests 04/30: Cl 108.7 CO2 19 BUN 22 Cr 1.4 Pertinent Medications 04/30: Thiamine Weight change and time frame 9.83% wt loss since assessment 04/26 Subjective/Other Information RD follow-up per protocol. Pt unresponsive during visit. 50% Breakfast 04/27 and 100% Lunch 04/29 reported per ADL notes. 0% Breakfast 04/30 per RN tech. GI Symptoms None Food Allergy No Current % PO Poor (25-49%) #1 Nutrition Diagnosis Malnutrition Diagnosis Progress(for reassessment Continues documentation) Nutrition Intervention Change Diet Order: Continue current diet order Add Supplement/Snack (indicate name/kcal Nepro BID /protein ) Provides kCal: 850 Provides Protein (gm) 38 Goal #1 Pt to consume >75% of estimated energy/protein needs through current diet order / supplementation. Goal #2 Pt to mtaintain current wt status within 2.5% during LOS. Follow-Up By: 05/03/22 Additional Comments Monitor %PO intake, wt status, and nutrition-related lab values.
[2022-05-03] MEDS ORDERED: MIDODRINE 10 MG TAB PO SCH (09:30)
[2022-05-03] MEDS ORDERED: levoFLOXacin 750 MG TAB PO SCH (10:00)
--- NOTE | 2022-05-03 11:47 | Electrocardiograph Report ---
[facility] Test Date: 2022-05-02 Test Time: 14:17:40 Pat Name: PAL RAMIREZ Department: Room: A467 1 Gender: M [employer]: NATTY : 1960 Requested By: PETE CHASE Order Number: [id number] Reading MD: Ziggy Simpson Measurements Intervals [place] Rate: 74 P: MN: QRS: 75 QRSD: 106 T: 74 QT: 480 QTc: 571 Interpretive Statements Atrial flutter Prolonged QT interval No previous ECG available for comparison Electronically Signed On 05-03-2022 11:46:37 EDT by Ziggy Simpson
[2022-05-03] MEDS: SODIUM CHLORIDE 0.9% 1000 ML 1,000 ML IV SCH (14:33)
[2022-05-03] MEDS: MIDODRINE 10 MG TAB PO SCH ×2 (14:34→16:01)
[2022-05-03] MEDS: QUEtiapine 100 MG TAB PO SCH (21:09)
[2022-05-04] MEDS: metroNIDAZOLE 500 MG TAB PO SCH ×3 (06:00→21:26)
[2022-05-04] MEDS: SODIUM CHLORIDE 0.9% 1000 ML 1,000 ML IV SCH ×2 (06:00→14:37)
[2022-05-04] MEDS: MIDODRINE 10 MG TAB PO SCH ×3 (08:41→18:43)
--- NOTE | 2022-05-04 09:15 | Progress Note ---
Assessment and Plan Assessment and plan: 61y/o WM with h/o HTN, possible dementia and on antidepressant presented to ER from [facility] [place] with rectal bleeding. H/H stable, evaluated by GI but no plan for endoscopy. Plan to monitor with PPI. Patient did have streak of blood with stool following admission - thought for hemorrhoids, started on steroid [place]. Cont abx for colitis. Patient is hypotensive started on midodrine , blood pressures improved, patient was asymptomatic Assessment and plan -- GI bleed/rectal bleeding - likely from hemorrhoids Placed on steroid [place], monitor h/h no plan for endoscopy --Acute colitis, cont abx Tolerating GI soft diet, advance as tolerated --h/o depression, cont home meds Supportive care -- HTN, cont coreg Closely monitor blood pressures and adjust as needed --Possible dementia, supportive care --DVT Px, SCD --pending dc to SNF, pending authorization We will closely monitor the patient and adjust management as needed Plan of care reviewed with the patient and his nurse Patient is stable for discharge pending authorization 05/01; SNF placement pending authorization 05/02; DC to SNF authorization pending 02/01; possible placement to personal skilled nursing tomorrow DC planning per case management History Interval history: I have seen and examined the patient at the bedside Patient's chart and medications reviewed Patient feels slightly better Awaiting placement/personal skilled nursing Vital signs noted Hospitalist Physical - Constitutional Vitals: Temp Pulse Resp BP Pulse Ox 98.2 F 113 H 16 96/59 97 05/04/22 07:33 05/04/22 07:33 05/04/22 07:33 05/04/22 07:33 05/04/22 07:33 General appearance: Present: no acute distress, well-nourished - EENT Eyes: Present: PERRL, EOM intact - Neck Neck: Present: supple, normal ROM - Respiratory Respiratory effort: normal Respiratory: bilateral: diminished, negative: rales, rhonchi, wheezing - Cardiovascular Rhythm: regular Heart Sounds: Present: S1 & S2 - Extremities Extremities: no ischemia, No edema - Abdominal General gastrointestinal: soft, non-tender, non-distended, normal bowel sounds - Integumentary Integumentary: Present: clear, warm - Psychiatric Psychiatric: appropriate mood/affect, cooperative - Neurologic Neurologic: CNII-XII intact, moves all extremities Results - Labs CBC & Chem 7: 05/03/22 04:23 05/03/22 04:23 Labs: Laboratory Last Values WBC 5.5 K/mm3 (4.5-11.0) 04/30/22 04:50 RBC 2.77 M/mm3 (3.65-5.03) L 04/30/22 04:50 Hgb 8.3 gm/dl (11.8-15.2) L 05/03/22 04:23 Hct 24.4 % (35.5-45.6) L 05/03/22 04:23 MCV 93 fl (84-94) 04/30/22 04:50 MCH 30 pg (28-32) 04/30/22 04:50 MCHC 33 % (32-34) 04/30/22 04:50 RDW 15.5 % (13.2-15.2) H 04/30/22 04:50 Plt Count 124 K/mm3 (140-440) L 04/30/22 04:50 Lymph % (Auto) 27.4 % (13.4-35.0) 04/30/22 04:50 [place] % (Auto) 8.9 % (0.0-7.3) H 04/30/22 04:50 Eos % (Auto) 2.4 % (0.0-4.3) 04/30/22 04:50 Baso % (Auto) 0.5 % (0.0-1.8) 04/30/22 04:50 Lymph # (Auto) 1.5 K/mm3 (1.2-5.4) 04/30/22 04:50 [place] # (Auto) 0.5 K/mm3 (0.0-0.8) 04/30/22 04:50 Eos # (Auto) 0.1 K/mm3 (0.0-0.4) 04/30/22 04:50 Baso # (Auto) 0.0 K/mm3 (0.0-0.1) 04/30/22 04:50 Seg Neutrophils % 60.8 % (40.0-70.0) 04/30/22 04:50 Seg Neutrophils # 3.4 K/mm3 (1.8-7.7) 04/30/22 04:50 PT 16.4 Sec. (12.2-14.9) H 04/26/22 04:42 INR 1.15 (0.87-1.13) H 04/26/22 04:42 Sodium 140 mmol/L (137-145) 05/02/22 05:43 Potassium 4.1 mmol/L (3.6-5.0) 05/02/22 05:43 Chloride 111.6 mmol/L (98-107) H 05/02/22 05:43 Carbon Dioxide 22 mmol/L (22-30) 05/02/22 05:43 Anion Gap 11 mmol/L 05/02/22 05:43 BUN 26 mg/dL (9-20) H 05/02/22 05:43 Creatinine 1.2 mg/dL (0.8-1.3) 05/03/22 04:23 Estimated GFR > 60 ml/min 05/03/22 04:23 BUN/Creatinine Ratio 19 % 05/02/22 05:43 Glucose 88 mg/dL (75-100) 05/02/22 05:43 POC Glucose 98 mg/dL (70-105) 04/26/22 17:09 Lactic Acid 1.90 mmol/L (0.7-2.0) 04/26/22 04:42 Calcium 7.9 mg/dL (8.4-10.2) L 05/02/22 05:43 Total Bilirubin 0.40 mg/dL (0.1-1.2) 04/26/22 03:42 AST 20 units/L (5-40) 04/26/22 03:42 ALT 10 units/L (7-56) 04/26/22 03:42 Alkaline Phosphatase 140 units/L (35-129) H 04/26/22 03:42 Total Protein 6.2 g/dL (6.3-8.2) L 04/26/22 03:42 Albumin 2.8 g/dL (3.9-5) L 04/26/22 03:42 Albumin/Globulin Ratio 0.8 % 04/26/22 03:42 Lipase 57 units/L (13-60) 04/26/22 03:42 Coronavirus (PCR) Negative (Negative) 04/28/22 11:32 Pizano/IV: Voiding Method Condom Catheter Active Medications - Current Medications Current Medications: Generic Name Dose Route Start Last Admin Trade Name Freq PRN Reason Stop Dose Admin Acetaminophen 650 mg 04/26/22 09:53 05/01/22 00:55 Acetaminophen 325 Mg Tab PO 650 mg Q4H PRN Administration Pain MILD(1-3)/Fever >100.5/JONES Duloxetine HCl 20 mg 04/27/22 10:00 05/03/22 09:20 Duloxetine 20 Mg Cap PO 20 mg QDAY YASH Administration Hydrocortisone Acetate 1 applic 04/29/22 12:44 Hydrocortisone 2.5% Rect Cream 28.35 Gm [place] Q8H PRN Hemorrhoids Sodium Chloride 1,000 mls @ 125 mls/hr 04/26/22 17:00 05/04/22 06:00 Nacl 0.9% 1000 Ml IV 75 mls/hr DIRECT YASH Administration Levofloxacin 750 mg 05/04/22 10:00 Levofloxacin 750 Mg Tab PO 05/07/22 10:01 Q24HR YASH Metoprolol Tartrate 25 mg 04/27/22 22:00 05/03/22 21:09 Metoprolol Tartrate 25 Mg Tab PO 25 mg BID YASH Administration Metronidazole 500 mg 05/01/22 09:00 05/04/22 06:00 Metronidazole 500 Mg Tab PO 05/07/22 22:01 500 mg Q8HR YASH Administration Protocol Midodrine 10 mg 05/03/22 12:00 05/04/22 08:41 Midodrine 10 Mg Tab PO 10 mg TID@0800,1200,1600 YASH Administration Morphine Sulfate 2 mg 04/26/22 09:53 05/02/22 21:35 Morphine 2 Mg/1 Ml Inj IV 2 mg Q4H PRN Administration Pain, Moderate (4-6) Ondansetron HCl 4 mg 04/26/22 09:53 Ondansetron 4 Mg/2 Ml Inj IV Q8H PRN Nausea And Vomiting Pantoprazole Sodium 20 mg 04/27/22 10:00 05/03/22 09:20 Pantoprazole 20 Mg Tab PO 20 mg QDAY YASH Administration Quetiapine Fumarate 100 mg 04/26/22 22:00 05/03/22 21:09 Quetiapine 100 Mg Tab PO 100 mg HS YASH Administration Sodium Chloride 10 ml 04/26/22 11:00 05/03/22 21:09 Sodium Chloride 0.9% 10 Ml Flush Syringe IV 10 ml BID YASH Administration Sodium Chloride 10 ml 04/26/22 09:53 Sodium Chloride 0.9% 10 Ml Flush Syringe IV PRN PRN LINE FLUSH Thiamine HCl 100 mg 04/27/22 10:00 05/03/22 09:20 Thiamine 100 Mg Tab PO 100 mg QDAY YASH Administration Nutrition/Malnutrition Assess - Dietary Evaluation Nutrition/Malnutrition Findings: Nutrition Notes Start: 04/26/22 15:10 Freq: Status: Active Protocol: Document 05/03/22 15:41 CM (Rec: 05/03/22 15:52 CM [id number]) Co-Sign 05/03/22 15:41 WW Nutrition Notes Initial or Follow up Reassessment Current Diagnosis Acute Kidney Injury, Hypertension Other Pertinent Diagnosis Acute colitis Current Diet GI Soft + Nepro TID Labs/Tests 05/03: Cl 111.6 BUN 26 Cr 1.4 Pertinent Medications 05/03: Thiamine Height 5 ft 8 in Weight 58.7 kg [place] Body Weight (kg) 70.00 BMI 19.6 Intake Prior to Admission Good Weight change and time frame 5.2% weight gain since 04/30 assessment. Weight Status Appropriate Subjective/Other Information RD follow-up per protocol. Pt lunch 75% consumed at visit . 3 Nepros consumed today per RN . No updated % in ADL notes at this time. GI bleed thought to be related to hemorrhoids per progress notes. Percent of energy/protein needs met: GI soft diet provides 2000 kcal / 82g PRO q day (97%/117% ) Burn Absent Trauma Absent GI Symptoms None Food Allergy No Current % PO Good (75-100%) #1 Nutrition Diagnosis Malnutrition Diagnosis Progress(for reassessment Improved documentation) Is patient on ventilator? No Is Patient Ambulatory and/or Out of Bed No REE-([facility]-confined to bed) 1633.140 Kcal/Kg value to use for calculation 35 Approximate Energy Requirements Using 5 kcal/Kg Calculation Used for Recommendations Kcal/kg Additional Notes 0.8-1.2g/kg ABW; 47-70g PRO q day Fluid needs: 1mL/kg or per MD Nutrition Intervention Change Diet Order: Recommend changing diet order to renal diet as tolerable (if no GI bleed is present) Add Supplement/Snack (indicate name/kcal Nepro TID /protein ) Provides kCal: 1,275 Provides Protein (gm) 57 Goal #1 Pt to consume >75% of estimated energy/protein needs through current diet order / supplementation. Goal #2 Pt to maintain current wt status within 2.5% during LOS. Follow-Up By: 05/10/22 Additional Comments Monitor %PO intake, wt status, and nutrition-related lab values.
[2022-05-04] MEDS: levoFLOXacin 750 MG TAB PO SCH (09:54)
[2022-05-04] MEDS: METOPROLOL TARTRATE 25 MG TAB PO SCH ×2 (09:54→21:26)
[2022-05-04] MEDS: PANTOPRAZOLE 20 MG TAB PO SCH (09:54)
[2022-05-04] MEDS: DULoxetine 20 MG CAP PO SCH (09:54)
[2022-05-04] MEDS: THIAMINE 100 MG TAB PO SCH (09:54)
--- NOTE | 2022-05-04 12:40 | Discharge Summary ---
Providers - Providers Date of Admission: 04/26/22 09:53 Date of discharge: 05/04/22 Attending physician: PETE CHASE 04/26/22 09:59 Consult to Physician [CONS] Urgent Comment: Consulting Provider: SARI FORD Physician Instructions: Reason For Exam: GI bleeding 04/27/22 09:27 Occupational Therapy Evaluate and Treat [CONS] Routine Comment: OT eval and treat Reason For Exam: debility Physical Therapy Evaluation and Treat [CONS] Routine Comment: Pt eval and treat Reason For Exam: debility Primary care physician: [employer] Hospitalization Condition: Stable Hospital course: -- GI bleed/rectal bleeding - likely from hemorrhoids Placed on steroid CT, monitor h/h no plan for endoscopy --Acute colitis, cont abx Tolerating GI soft diet, advance as tolerated --h/o depression, cont home meds Supportive care -- HTN, cont coreg Closely monitor blood pressures and adjust as needed --Possible dementia, supportive care --DVT Px, SCD Disposition: HOME HEALTH CARE SERVICE Final Discharge Diagnosis (Prints w/discharge instructions): GI bleeding secondary to hemorrhoids. Acute colitis on antibiotics. History of depression stable. Hypertension/blood pressure in the lower range on midodrine. Possible dementia Time spent for discharge: 35 minutes Core Measure Documentation - Palliative Care Palliative Care/ Comfort Measures: Not Applicable - Core Measures Any of the following diagnoses?: none Exam - Constitutional Vitals: Temp Pulse Resp BP Pulse Ox 97.9 F 114 H 16 98/62 98 05/04/22 11:17 05/04/22 11:17 05/04/22 11:17 05/04/22 11:17 05/04/22 11:17 Plan Additional Instructions: Fall precautions. You have worsening symptoms contact MD or go to the nearest emergency room. Follow up with: LEANNA ALTAMIRANO MD [Primary Care Provider] - 7 Days SARI FORD MD [Staff Physician] - 14 Days Forms: Accompanied Note Prescriptions: metroNIDAZOLE [Flagyl TAB] 500 mg PO Q8HR #9 tablet levoFLOXacin [Levaquin TAB] 750 mg PO Q24HR #3 tablet Midodrine [Proamatine] 10 mg PO TID@0800,1200,1600 #30 tablet Hydrocortisone 2.5% [Proctosol-Hc] [address] Q8H PRN #1 tube PRN Reason: Hemorrhoids Pantoprazole [Protonix TAB] 20 mg PO QDAY #30 Thiamine [Vitamin B-1] 100 mg PO QDAY #30
[2022-05-04] MEDS: QUEtiapine 100 MG TAB PO SCH (21:26)
[2022-05-05] MEDS ORDERED: SODIUM CHLORIDE 0.9% 1000 ML 1,000 ML IV ONE (06:00)
[2022-05-05] MEDS: metroNIDAZOLE 500 MG TAB PO SCH ×3 (06:10→22:09)
[2022-05-05] MEDS: SODIUM CHLORIDE 0.9% 1000 ML 1,000 ML IV SCH ×2 (07:16→17:45)
[2022-05-05] MEDS: DULoxetine 20 MG CAP PO SCH (10:26)
[2022-05-05] MEDS: METOPROLOL TARTRATE 25 MG TAB PO SCH (10:27)
[2022-05-05] MEDS: MIDODRINE 10 MG TAB PO SCH ×3 (10:27→17:06)
[2022-05-05] MEDS: PANTOPRAZOLE 20 MG TAB PO SCH (10:27)
[2022-05-05] MEDS: THIAMINE 100 MG TAB PO SCH (10:27)
[2022-05-05] MEDS: levoFLOXacin 750 MG TAB PO SCH (10:27)
--- NOTE | 2022-05-05 19:23 | Discharge Summary ---
Providers - Providers Date of Admission: 04/26/22 09:53 Date of discharge: 05/04/22 Attending physician: PETE CHASE 04/26/22 09:59 Consult to Physician [CONS] Urgent Comment: Consulting Provider: SARI FORD Physician Instructions: Reason For Exam: GI bleeding 04/27/22 09:27 Occupational Therapy Evaluate and Treat [CONS] Routine Comment: OT eval and treat Reason For Exam: debility Physical Therapy Evaluation and Treat [CONS] Routine Comment: Pt eval and treat Reason For Exam: debility Primary care physician: [employer]RI[employer]GENIST Hospitalization Condition: Stable Disposition: HOME HEALTH CARE SERVICE Core Measure Documentation - Palliative Care Palliative Care/ Comfort Measures: Not Applicable Exam - Constitutional Vitals: Temp Pulse Resp BP Pulse Ox 98.2 F 64 18 131/78 99 05/05/22 16:17 05/05/22 16:17 05/05/22 16:17 05/05/22 16:17 05/05/22 16:17 Plan Follow up with: SARI FORD MD [Staff Physician] - 14 Days PRIMARY CARE, [Primary Care Provider] - 7 Days Forms: Accompanied Note Prescriptions: metroNIDAZOLE [Flagyl TAB] 500 mg PO Q8HR #9 tablet levoFLOXacin [Levaquin TAB] 750 mg PO Q24HR #3 tablet Midodrine [Proamatine] 10 mg PO TID@0800,1200,1600 #30 tablet Hydrocortisone 2.5% [Proctosol-Hc] 1 applic RI Q8H PRN #1 tube PRN Reason: Hemorrhoids Pantoprazole [Protonix TAB] 20 mg PO QDAY #30 Thiamine [Vitamin B-1] 100 mg PO QDAY #30
--- NOTE | 2022-05-05 19:24 | Progress Note ---
Assessment and Plan Assessment and plan: 61y/o WM with h/o HTN, possible dementia and on antidepressant presented to ER from [facility] with rectal bleeding. H/H stable, evaluated by GI but no plan for endoscopy. Plan to monitor with PPI. Patient did have streak of blood with stool following admission - thought for hemorrhoids, started on steroid HI. Cont abx for colitis. Patient is hypotensive started on midodrine , blood pressures improved, patient was asymptomatic Assessment and plan -- GI bleed/rectal bleeding - likely from hemorrhoids Placed on steroid HI, monitor h/h no plan for endoscopy --Acute colitis, cont abx Tolerating GI soft diet, advance as tolerated --h/o depression, cont home meds Supportive care -- HTN, cont coreg Closely monitor blood pressures and adjust as needed --Possible dementia, supportive care --DVT Px, SCD --pending dc to SNF, pending authorization We will closely monitor the patient and adjust management as needed Plan of care reviewed with the patient and his nurse Patient is stable for discharge pending authorization 05/01; SNF placement pending authorization 05/02; DC to SNF authorization pending 02/01; possible placement to personal custodial tomorrow DC planning per case management 02/02; patient was discharged yesterday unable to go for social reasons Patient is again discharged today, case management tried to contact patient's brother Patient could not be discharged. History Interval history: I have seen and examined the patient at the bedside Patient's chart chart and medications reviewed Patient feels better, anxious to be discharged No new overnight events reported by nursing Vital signs reviewed Hospitalist Physical - Constitutional Vitals: Temp Pulse Resp BP Pulse Ox 98.2 F 64 18 131/78 99 05/05/22 16:17 05/05/22 16:17 05/05/22 16:17 05/05/22 16:17 05/05/22 16:17 General appearance: Present: no acute distress, well-nourished - EENT Eyes: Present: PERRL, EOM intact - Neck Neck: Present: supple, normal ROM - Respiratory Respiratory effort: normal Respiratory: bilateral: diminished, negative: rales, rhonchi, wheezing - Cardiovascular Rhythm: regular Heart Sounds: Present: S1 & S2 - Extremities Extremities: no ischemia, No edema - Abdominal General gastrointestinal: soft, non-tender, non-distended, normal bowel sounds - Integumentary Integumentary: Present: clear, warm - Psychiatric Psychiatric: appropriate mood/affect, cooperative - Neurologic Neurologic: CNII-XII intact, moves all extremities Results - Labs CBC & Chem 7: 05/03/22 04:23 05/03/22 04:23 Labs: Laboratory Last Values WBC 5.5 K/mm3 (4.5-11.0) 04/30/22 04:50 RBC 2.77 M/mm3 (3.65-5.03) L 04/30/22 04:50 Hgb 8.3 gm/dl (11.8-15.2) L 05/03/22 04:23 Hct 24.4 % (35.5-45.6) L 05/03/22 04:23 MCV 93 fl (84-94) 04/30/22 04:50 MCH 30 pg (28-32) 04/30/22 04:50 MCHC 33 % (32-34) 04/30/22 04:50 RDW 15.5 % (13.2-15.2) H 04/30/22 04:50 Plt Count 124 K/mm3 (140-440) L 04/30/22 04:50 Lymph % (Auto) 27.4 % (13.4-35.0) 04/30/22 04:50 [place] % (Auto) 8.9 % (0.0-7.3) H 04/30/22 04:50 Eos % (Auto) 2.4 % (0.0-4.3) 04/30/22 04:50 Baso % (Auto) 0.5 % (0.0-1.8) 04/30/22 04:50 Lymph # (Auto) 1.5 K/mm3 (1.2-5.4) 04/30/22 04:50 [place] # (Auto) 0.5 K/mm3 (0.0-0.8) 04/30/22 04:50 Eos # (Auto) 0.1 K/mm3 (0.0-0.4) 04/30/22 04:50 Baso # (Auto) 0.0 K/mm3 (0.0-0.1) 04/30/22 04:50 Seg Neutrophils % 60.8 % (40.0-70.0) 04/30/22 04:50 Seg Neutrophils # 3.4 K/mm3 (1.8-7.7) 04/30/22 04:50 PT 16.4 Sec. (12.2-14.9) H 04/26/22 04:42 INR 1.15 (0.87-1.13) H 04/26/22 04:42 Sodium 140 mmol/L (137-145) 05/02/22 05:43 Potassium 4.1 mmol/L (3.6-5.0) 05/02/22 05:43 Chloride 111.6 mmol/L (98-107) H 05/02/22 05:43 Carbon Dioxide 22 mmol/L (22-30) 05/02/22 05:43 Anion Gap 11 mmol/L 05/02/22 05:43 BUN 26 mg/dL (9-20) H 05/02/22 05:43 Creatinine 1.2 mg/dL (0.8-1.3) 05/03/22 04:23 Estimated GFR > 60 ml/min 05/03/22 04:23 BUN/Creatinine Ratio 19 % 05/02/22 05:43 Glucose 88 mg/dL (75-100) 05/02/22 05:43 POC Glucose 98 mg/dL (70-105) 04/26/22 17:09 Lactic Acid 1.90 mmol/L (0.7-2.0) 04/26/22 04:42 Calcium 7.9 mg/dL (8.4-10.2) L 05/02/22 05:43 Total Bilirubin 0.40 mg/dL (0.1-1.2) 04/26/22 03:42 AST 20 units/L (5-40) 04/26/22 03:42 ALT 10 units/L (7-56) 04/26/22 03:42 Alkaline Phosphatase 140 units/L (35-129) H 04/26/22 03:42 Total Protein 6.2 g/dL (6.3-8.2) L 04/26/22 03:42 Albumin 2.8 g/dL (3.9-5) L 04/26/22 03:42 Albumin/Globulin Ratio 0.8 % 04/26/22 03:42 Lipase 57 units/L (13-60) 04/26/22 03:42 Coronavirus (PCR) Negative (Negative) 04/28/22 11:32 Pizano/IV: Voiding Method Condom Catheter Active Medications - Current Medications Current Medications: Generic Name Dose Route Start Last Admin Trade Name Freq PRN Reason Stop Dose Admin Acetaminophen 650 mg 04/26/22 09:53 05/01/22 00:55 Acetaminophen 325 Mg Tab PO 650 mg Q4H PRN Administration Pain MILD(1-3)/Fever >100.5/JONES Duloxetine HCl 20 mg 04/27/22 10:00 05/05/22 10:26 Duloxetine 20 Mg Cap PO 20 mg QDAY YASH Administration Hydrocortisone Acetate 1 applic 04/29/22 12:44 Hydrocortisone 2.5% Rect Cream 28.35 Gm HI Q8H PRN Hemorrhoids Sodium Chloride 1,000 mls @ 125 mls/hr 04/26/22 17:00 05/05/22 17:45 Nacl 0.9% 1000 Ml IV 100 mls/hr DIRECT YASH Administration Levofloxacin 750 mg 05/04/22 10:00 05/05/22 10:27 Levofloxacin 750 Mg Tab PO 05/07/22 10:01 750 mg Q24HR YASH Administration Metronidazole 500 mg 05/01/22 09:00 05/05/22 13:57 Metronidazole 500 Mg Tab PO 05/07/22 22:01 500 mg Q8HR YASH Administration Protocol Midodrine 10 mg 05/03/22 12:00 05/05/22 17:06 Midodrine 10 Mg Tab PO 10 mg TID@0800,1200,1600 YASH Administration Morphine Sulfate 2 mg 04/26/22 09:53 05/02/22 21:35 Morphine 2 Mg/1 Ml Inj IV 2 mg Q4H PRN Administration Pain, Moderate (4-6) Ondansetron HCl 4 mg 04/26/22 09:53 Ondansetron 4 Mg/2 Ml Inj IV Q8H PRN Nausea And Vomiting Pantoprazole Sodium 20 mg 04/27/22 10:00 05/05/22 10:27 Pantoprazole 20 Mg Tab PO 20 mg QDAY YASH Administration Quetiapine Fumarate 100 mg 04/26/22 22:00 05/04/22 21:26 Quetiapine 100 Mg Tab PO 100 mg HS YASH Administration Sodium Chloride 10 ml 04/26/22 11:00 05/05/22 10:27 Sodium Chloride 0.9% 10 Ml Flush Syringe IV 10 ml BID YASH Administration Sodium Chloride 10 ml 04/26/22 09:53 Sodium Chloride 0.9% 10 Ml Flush Syringe IV PRN PRN LINE FLUSH Thiamine HCl 100 mg 04/27/22 10:00 05/05/22 10:27 Thiamine 100 Mg Tab PO 100 mg QDAY YASH Administration Nutrition/Malnutrition Assess - Dietary Evaluation Nutrition/Malnutrition Findings: Nutrition Notes Start: 04/26/22 15:10 Freq: Status: Active Protocol: Document 05/03/22 15:41 CM (Rec: 05/03/22 15:52 CM [id number]) Co-Sign 05/03/22 15:41 WW Nutrition Notes Initial or Follow up Reassessment Current Diagnosis Acute Kidney Injury, Hypertension Other Pertinent Diagnosis Acute colitis Current Diet GI Soft + Nepro TID Labs/Tests 05/03: Cl 111.6 BUN 26 Cr 1.4 Pertinent Medications 05/03: Thiamine Height 5 ft 8 in Weight 58.7 kg [place] Body Weight (kg) 70.00 BMI 19.6 Intake Prior to Admission Good Weight change and time frame 5.2% weight gain since 04/30 assessment. Weight Status Appropriate Subjective/Other Information RD follow-up per protocol. Pt lunch 75% consumed at visit . 3 Nepros consumed today per RN . No updated % in ADL notes at this time. GI bleed thought to be related to hemorrhoids per progress notes. Percent of energy/protein needs met: GI soft diet provides 2000 kcal / 82g PRO q day (97%/117% ) Burn Absent Trauma Absent GI Symptoms None Food Allergy No Current % PO Good (75-100%) #1 Nutrition Diagnosis Malnutrition Diagnosis Progress(for reassessment Improved documentation) Is patient on ventilator? No Is Patient Ambulatory and/or Out of Bed No REE-([facility]-confined to bed) 1633.140 Kcal/Kg value to use for calculation 35 Approximate Energy Requirements Using 2054 kcal/Kg Calculation Used for Recommendations Kcal/kg Additional Notes 0.8-1.2g/kg ABW; 47-70g PRO q day Fluid needs: 1mL/kg or per MD Nutrition Intervention Change Diet Order: Recommend changing diet order to renal diet as tolerable (if no GI bleed is present) Add Supplement/Snack (indicate name/kcal Nepro TID /protein ) Provides kCal: 1,275 Provides Protein (gm) 57 Goal #1 Pt to consume >75% of estimated energy/protein needs through current diet order / supplementation. Goal #2 Pt to maintain current wt status within 2.5% during LOS. Follow-Up By: 05/10/22 Additional Comments Monitor %PO intake, wt status, and nutrition-related lab values.
[2022-05-05] MEDS: QUEtiapine 100 MG TAB PO SCH (22:09)
[2022-05-06] MEDS: SODIUM CHLORIDE 0.9% 1000 ML 1,000 ML IV SCH ×2 (04:24→20:59)
[2022-05-06] MEDS: metroNIDAZOLE 500 MG TAB PO SCH ×3 (06:44→21:01)
--- NOTE | 2022-05-06 09:33 | Progress Note ---
Assessment and Plan Assessment and plan: 61y/o WM with h/o HTN, possible dementia and on antidepressant presented to ER from [facility] with rectal bleeding. H/H stable, evaluated by GI but no plan for endoscopy. Plan to monitor with PPI. Patient did have streak of blood with stool following admission - thought for hemorrhoids, started on steroid SD. Cont abx for colitis. Patient is hypotensive started on midodrine , blood pressures improved, patient was asymptomatic Assessment and plan -- GI bleed/rectal bleeding - likely from hemorrhoids Placed on steroid SD, monitor h/h no plan for endoscopy --Acute colitis, cont abx Tolerating GI soft diet, advance as tolerated --h/o depression, cont home meds Supportive care -- HTN, cont coreg Closely monitor blood pressures and adjust as needed --Possible dementia, supportive care --DVT Px, SCD --pending dc to SNF, pending authorization We will closely monitor the patient and adjust management as needed Plan of care reviewed with the patient and his nurse Patient is stable for discharge pending authorization 05/01; SNF placement pending authorization 05/02; DC to SNF authorization pending 02/01; possible placement to personal jail tomorrow DC planning per case management 02/02; patient was discharged yesterday unable to go for social reasons Patient is again discharged today, case management tried to contact patient's brother Patient could not be discharged. 02/03; patient is already discharged 2 days ago to personal jail ,awaiting his brother to take care of the formalities . Multiple phone calls was made by CM unable to contact him, DC planning per case management Patient is medically stable for discharge History Interval history: I have seen and examined the patient at the bedside Patient's chart and medications reviewed Patient was discharged 2 days ago, but there was expected to pick him up However patient could not be discharged as no one picked him up Patient was upset and anxious No new complaints Hospitalist Physical - Constitutional Vitals: Temp Pulse Resp BP Pulse Ox 98.3 F 117 H 18 100/72 98 05/06/22 01:54 05/06/22 01:54 05/06/22 01:54 05/06/22 01:54 05/06/22 01:54 General appearance: Present: no acute distress, well-nourished - EENT Eyes: Present: PERRL, EOM intact - Neck Neck: Present: supple, normal ROM - Respiratory Respiratory effort: normal Respiratory: bilateral: diminished, negative: rales, rhonchi, wheezing - Cardiovascular Rhythm: regular Heart Sounds: Present: S1 & S2 - Extremities Extremities: no ischemia, No edema - Abdominal General gastrointestinal: soft, non-tender, non-distended, normal bowel sounds - Integumentary Integumentary: Present: clear, warm - Psychiatric Psychiatric: appropriate mood/affect, cooperative - Neurologic Neurologic: moves all extremities Results - Labs CBC & Chem 7: 05/03/22 04:23 05/03/22 04:23 Labs: Laboratory Last Values WBC 5.5 K/mm3 (4.5-11.0) 04/30/22 04:50 RBC 2.77 M/mm3 (3.65-5.03) L 04/30/22 04:50 Hgb 8.3 gm/dl (11.8-15.2) L 05/03/22 04:23 Hct 24.4 % (35.5-45.6) L 05/03/22 04:23 MCV 93 fl (84-94) 04/30/22 04:50 MCH 30 pg (28-32) 04/30/22 04:50 MCHC 33 % (32-34) 04/30/22 04:50 RDW 15.5 % (13.2-15.2) H 04/30/22 04:50 Plt Count 124 K/mm3 (140-440) L 04/30/22 04:50 Lymph % (Auto) 27.4 % (13.4-35.0) 04/30/22 04:50 [place] % (Auto) 8.9 % (0.0-7.3) H 04/30/22 04:50 Eos % (Auto) 2.4 % (0.0-4.3) 04/30/22 04:50 Baso % (Auto) 0.5 % (0.0-1.8) 04/30/22 04:50 Lymph # (Auto) 1.5 K/mm3 (1.2-5.4) 04/30/22 04:50 [place] # (Auto) 0.5 K/mm3 (0.0-0.8) 04/30/22 04:50 Eos # (Auto) 0.1 K/mm3 (0.0-0.4) 04/30/22 04:50 Baso # (Auto) 0.0 K/mm3 (0.0-0.1) 04/30/22 04:50 Seg Neutrophils % 60.8 % (40.0-70.0) 04/30/22 04:50 Seg Neutrophils # 3.4 K/mm3 (1.8-7.7) 04/30/22 04:50 PT 16.4 Sec. (12.2-14.9) H 04/26/22 04:42 INR 1.15 (0.87-1.13) H 04/26/22 04:42 Sodium 140 mmol/L (137-145) 05/02/22 05:43 Potassium 4.1 mmol/L (3.6-5.0) 05/02/22 05:43 Chloride 111.6 mmol/L (98-107) H 05/02/22 05:43 Carbon Dioxide 22 mmol/L (22-30) 05/02/22 05:43 Anion Gap 11 mmol/L 05/02/22 05:43 BUN 26 mg/dL (9-20) H 05/02/22 05:43 Creatinine 1.2 mg/dL (0.8-1.3) 05/03/22 04:23 Estimated GFR > 60 ml/min 05/03/22 04:23 BUN/Creatinine Ratio 19 % 05/02/22 05:43 Glucose 88 mg/dL (75-100) 05/02/22 05:43 POC Glucose 98 mg/dL (70-105) 04/26/22 17:09 Lactic Acid 1.90 mmol/L (0.7-2.0) 04/26/22 04:42 Calcium 7.9 mg/dL (8.4-10.2) L 05/02/22 05:43 Total Bilirubin 0.40 mg/dL (0.1-1.2) 04/26/22 03:42 AST 20 units/L (5-40) 04/26/22 03:42 ALT 10 units/L (7-56) 04/26/22 03:42 Alkaline Phosphatase 140 units/L (35-129) H 04/26/22 03:42 Total Protein 6.2 g/dL (6.3-8.2) L 04/26/22 03:42 Albumin 2.8 g/dL (3.9-5) L 04/26/22 03:42 Albumin/Globulin Ratio 0.8 % 04/26/22 03:42 Lipase 57 units/L (13-60) 04/26/22 03:42 Coronavirus (PCR) Negative (Negative) 04/28/22 11:32 Pizano/IV: Voiding Method Condom Catheter Active Medications - Current Medications Current Medications: Generic Name Dose Route Start Last Admin Trade Name Freq PRN Reason Stop Dose Admin Acetaminophen 650 mg 04/26/22 09:53 05/01/22 00:55 Acetaminophen 325 Mg Tab PO 650 mg Q4H PRN Administration Pain MILD(1-3)/Fever >100.5/JONES Duloxetine HCl 20 mg 04/27/22 10:00 05/05/22 10:26 Duloxetine 20 Mg Cap PO 20 mg QDAY YASH Administration Hydrocortisone Acetate 1 applic 04/29/22 12:44 Hydrocortisone 2.5% Rect Cream 28.35 Gm SD Q8H PRN Hemorrhoids Sodium Chloride 1,000 mls @ 125 mls/hr 04/26/22 17:00 05/06/22 04:24 Nacl 0.9% 1000 Ml IV 100 mls/hr DIRECT YASH Administration Levofloxacin 750 mg 05/04/22 10:00 05/05/22 10:27 Levofloxacin 750 Mg Tab PO 05/07/22 10:01 750 mg Q24HR YASH Administration Metronidazole 500 mg 05/01/22 09:00 05/06/22 06:44 Metronidazole 500 Mg Tab PO 05/07/22 22:01 500 mg Q8HR YASH Administration Protocol Midodrine 10 mg 05/03/22 12:00 05/05/22 17:06 Midodrine 10 Mg Tab PO 10 mg TID@0800,1200,1600 YASH Administration Morphine Sulfate 2 mg 04/26/22 09:53 05/02/22 21:35 Morphine 2 Mg/1 Ml Inj IV 2 mg Q4H PRN Administration Pain, Moderate (4-6) Ondansetron HCl 4 mg 04/26/22 09:53 Ondansetron 4 Mg/2 Ml Inj IV Q8H PRN Nausea And Vomiting Pantoprazole Sodium 20 mg 04/27/22 10:00 05/05/22 10:27 Pantoprazole 20 Mg Tab PO 20 mg QDAY YASH Administration Quetiapine Fumarate 100 mg 04/26/22 22:00 05/05/22 22:09 Quetiapine 100 Mg Tab PO 100 mg HS YASH Administration Sodium Chloride 10 ml 04/26/22 11:00 05/05/22 22:09 Sodium Chloride 0.9% 10 Ml Flush Syringe IV 10 ml BID YASH Administration Sodium Chloride 10 ml 04/26/22 09:53 Sodium Chloride 0.9% 10 Ml Flush Syringe IV PRN PRN LINE FLUSH Thiamine HCl 100 mg 04/27/22 10:00 05/05/22 10:27 Thiamine 100 Mg Tab PO 100 mg QDAY YASH Administration Nutrition/Malnutrition Assess - Dietary Evaluation Nutrition/Malnutrition Findings: Nutrition Notes Start: 04/26/22 15:10 Freq: Status: Active Protocol: Document 05/03/22 15:41 CM (Rec: 05/03/22 15:52 CM [id number]) Co-Sign 05/03/22 15:41 WW Nutrition Notes Initial or Follow up Reassessment Current Diagnosis Acute Kidney Injury, Hypertension Other Pertinent Diagnosis Acute colitis Current Diet GI Soft + Nepro TID Labs/Tests 05/03: Cl 111.6 BUN 26 Cr 1.4 Pertinent Medications 05/03: Thiamine Height 5 ft 8 in Weight 58.7 kg [place] Body Weight (kg) 70.00 BMI 19.6 Intake Prior to Admission Good Weight change and time frame 5.2% weight gain since 04/30 assessment. Weight Status Appropriate Subjective/Other Information RD follow-up per protocol. Pt lunch 75% consumed at visit . 3 Nepros consumed today per RN . No updated % in ADL notes at this time. GI bleed thought to be related to hemorrhoids per progress notes. Percent of energy/protein needs met: GI soft diet provides 2000 kcal / 82g PRO q day (97%/117% ) Burn Absent Trauma Absent GI Symptoms None Food Allergy No Current % PO Good (75-100%) #1 Nutrition Diagnosis Malnutrition Diagnosis Progress(for reassessment Improved documentation) Is patient on ventilator? No Is Patient Ambulatory and/or Out of Bed No REE-([facility]confined [facility] bed) 1633.140 Kcal/Kg value to use for calculation 35 Approximate Energy Requirements Using 5 kcal/Kg Calculation Used for Recommendations Kcal/kg Additional Notes 0.8-1.2g/kg ABW; 47-70g PRO q day Fluid needs: 1mL/kg or per MD Nutrition Intervention Change Diet Order: Recommend changing diet order to renal diet as tolerable (if no GI bleed is present) Add Supplement/Snack (indicate name/kcal Nepro TID /protein ) Provides kCal: 1,275 Provides Protein (gm) 57 Goal #1 Pt to consume >75% of estimated energy/protein needs through current diet order / supplementation. Goal #2 Pt to maintain current wt status within 2.5% during LOS. Follow-Up By: 05/10/22 Additional Comments Monitor %PO intake, wt status, and nutrition-related lab values.
[2022-05-06] MEDS: MIDODRINE 10 MG TAB PO SCH ×3 (10:32→17:07)
[2022-05-06] MEDS: levoFLOXacin 750 MG TAB PO SCH (10:32)
[2022-05-06] MEDS: PANTOPRAZOLE 20 MG TAB PO SCH (10:32)
[2022-05-06] MEDS: THIAMINE 100 MG TAB PO SCH (10:32)
[2022-05-06] MEDS: DULoxetine 20 MG CAP PO SCH (10:32)
[2022-05-06] MEDS: ACETAMINOPHEN 325 MG TAB PO PRN (21:00)
[2022-05-06] MEDS: QUEtiapine 100 MG TAB PO SCH (21:01)
[2022-05-07] MEDS: metroNIDAZOLE 500 MG TAB PO SCH ×3 (05:49→21:19)
[2022-05-07] MEDS: MORPHINE 2 MG/1 ML INJ IV PRN (06:07)
[2022-05-07] MEDS: MIDODRINE 10 MG TAB PO SCH ×3 (08:47→15:43)
--- NOTE | 2022-05-07 09:22 | Progress Note ---
Assessment and Plan Assessment and plan: 61y/o WM with h/o HTN, possible dementia and on antidepressant presented to ER from [facility] [place] with rectal bleeding. H/H stable, evaluated by GI but no plan for endoscopy. Plan to monitor with PPI. Patient did have streak of blood with stool following admission - thought for hemorrhoids, started on steroid [place]. Cont abx for colitis. Patient is hypotensive started on midodrine , blood pressures improved, patient was asymptomatic. Patient is anxious to go to the long-term No new complaints, vital signs reviewed Assessment and plan -- GI bleed/rectal bleeding - likely from hemorrhoids Placed on steroid IL, monitor h/h no plan for endoscopy/resolved --Acute colitis, completed 10 days of antibiotics Tolerating GI soft diet, advance as tolerated --h/o depression, cont home meds Supportive care -- HTN, cont coreg Closely monitor blood pressures and adjust as needed --Possible dementia, supportive care --DVT Px, SCD --pending dc to SNF, pending authorization We will closely monitor the patient and adjust management as needed Plan of care reviewed with the patient and his nurse Patient is stable for discharge pending authorization 05/01; SNF placement pending authorization 05/02; DC to SNF authorization pending ; possible placement to personal long term tomorrow DC planning per case management ; patient was discharged yesterday unable to go for social reasons Patient is again discharged today, case management tried to contact patient's brother Patient could not be discharged. ; patient is already discharged 2 days ago to be transferred to personal long term ,awaiting his brother to take care of the formalities . Multiple phone calls was made by CM unable to contact him, DC planning per case management Patient is medically stable for discharge 05/07; DC planning per case management. Patient is medically stable for discharge orders in the chart. History Interval history: I have seen and examined the patient at the bedside Patient's chart and medications reviewed No new events reported by the nursing Patient is waiting to be transferred to long-term Pending some social issues Vital signs reviewed Hospitalist Physical - Constitutional Vitals: Temp Pulse Resp BP Pulse Ox 98.0 F 128 H 16 104/73 97 05/07/22 08:26 05/07/22 04:35 05/07/22 08:26 05/07/22 08:26 05/07/22 04:35 General appearance: Present: no acute distress, well-nourished - EENT Eyes: Present: PERRL, EOM intact - Neck Neck: Present: supple, normal ROM - Respiratory Respiratory effort: normal Respiratory: bilateral: diminished, negative: rales, rhonchi, wheezing - Cardiovascular Rhythm: regular Heart Sounds: Present: S1 & S2 - Extremities Extremities: no ischemia, No edema - Abdominal General gastrointestinal: soft, non-tender, non-distended, normal bowel sounds - Integumentary Integumentary: Present: clear, warm - Psychiatric Psychiatric: appropriate mood/affect, cooperative - Neurologic Neurologic: moves all extremities Results - Labs CBC & Chem 7: 05/03/22 04:23 05/03/22 04:23 Labs: Laboratory Last Values WBC 5.5 K/mm3 (4.5-11.0) 04/30/22 04:50 RBC 2.77 M/mm3 (3.65-5.03) L 04/30/22 04:50 Hgb 8.3 gm/dl (11.8-15.2) L 05/03/22 04:23 Hct 24.4 % (35.5-45.6) L 05/03/22 04:23 MCV 93 fl (84-94) 04/30/22 04:50 MCH 30 pg (28-32) 04/30/22 04:50 MCHC 33 % (32-34) 04/30/22 04:50 RDW 15.5 % (13.2-15.2) H 04/30/22 04:50 Plt Count 124 K/mm3 (140-440) L 04/30/22 04:50 Lymph % (Auto) 27.4 % (13.4-35.0) 04/30/22 04:50 [place] % (Auto) 8.9 % (0.0-7.3) H 04/30/22 04:50 Eos % (Auto) 2.4 % (0.0-4.3) 04/30/22 04:50 Baso % (Auto) 0.5 % (0.0-1.8) 04/30/22 04:50 Lymph # (Auto) 1.5 K/mm3 (1.2-5.4) 04/30/22 04:50 [place] # (Auto) 0.5 K/mm3 (0.0-0.8) 04/30/22 04:50 Eos # (Auto) 0.1 K/mm3 (0.0-0.4) 04/30/22 04:50 Baso # (Auto) 0.0 K/mm3 (0.0-0.1) 04/30/22 04:50 Seg Neutrophils % 60.8 % (40.0-70.0) 04/30/22 04:50 Seg Neutrophils # 3.4 K/mm3 (1.8-7.7) 04/30/22 04:50 PT 16.4 Sec. (12.2-14.9) H 04/26/22 04:42 INR 1.15 (0.87-1.13) H 04/26/22 04:42 Sodium 140 mmol/L (137-145) 05/02/22 05:43 Potassium 4.1 mmol/L (3.6-5.0) 05/02/22 05:43 Chloride 111.6 mmol/L (98-107) H 05/02/22 05:43 Carbon Dioxide 22 mmol/L (22-30) 05/02/22 05:43 Anion Gap 11 mmol/L 05/02/22 05:43 BUN 26 mg/dL (9-20) H 05/02/22 05:43 Creatinine 1.2 mg/dL (0.8-1.3) 05/03/22 04:23 Estimated GFR > 60 ml/min 05/03/22 04:23 BUN/Creatinine Ratio 19 % 05/02/22 05:43 Glucose 88 mg/dL (75-100) 05/02/22 05:43 POC Glucose 98 mg/dL (70-105) 04/26/22 17:09 Lactic Acid 1.90 mmol/L (0.7-2.0) 04/26/22 04:42 Calcium 7.9 mg/dL (8.4-10.2) L 05/02/22 05:43 Total Bilirubin 0.40 mg/dL (0.1-1.2) 04/26/22 03:42 AST 20 units/L (5-40) 04/26/22 03:42 ALT 10 units/L (7-56) 04/26/22 03:42 Alkaline Phosphatase 140 units/L (35-129) H 04/26/22 03:42 Total Protein 6.2 g/dL (6.3-8.2) L 04/26/22 03:42 Albumin 2.8 g/dL (3.9-5) L 04/26/22 03:42 Albumin/Globulin Ratio 0.8 % 04/26/22 03:42 Lipase 57 units/L (13-60) 04/26/22 03:42 Coronavirus (PCR) Negative (Negative) 04/28/22 11:32 Pizano/IV: Voiding Method Condom Catheter Active Medications - Current Medications Current Medications: Generic Name Dose Route Start Last Admin Trade Name Freq PRN Reason Stop Dose Admin Acetaminophen 650 mg 04/26/22 09:53 05/06/22 21:00 Acetaminophen 325 Mg Tab PO 650 mg Q4H PRN Administration Pain MILD(1-3)/Fever >100.5/JONES Duloxetine HCl 20 mg 04/27/22 10:00 05/06/22 10:32 Duloxetine 20 Mg Cap PO 20 mg QDAY YASH Administration Hydrocortisone Acetate 1 applic 04/29/22 12:44 Hydrocortisone 2.5% Rect Cream 28.35 Gm [place] Q8H PRN Hemorrhoids Sodium Chloride 1,000 mls @ 125 mls/hr 04/26/22 17:00 05/06/22 20:59 Nacl 0.9% 1000 Ml IV 100 mls/hr DIRECT YASH Administration Levofloxacin 750 mg 05/04/22 10:00 05/06/22 10:32 Levofloxacin 750 Mg Tab PO 05/07/22 10:01 750 mg Q24HR YASH Administration Metronidazole 500 mg 05/01/22 09:00 05/07/22 05:49 Metronidazole 500 Mg Tab PO 05/07/22 22:01 500 mg Q8HR YASH Administration Protocol Midodrine 10 mg 05/03/22 12:00 05/07/22 08:47 Midodrine 10 Mg Tab PO 10 mg TID@0800,1200,1600 YASH Administration Morphine Sulfate 2 mg 04/26/22 09:53 05/07/22 06:07 Morphine 2 Mg/1 Ml Inj IV 2 mg Q4H PRN Administration Pain, Moderate (4-6) Ondansetron HCl 4 mg 04/26/22 09:53 Ondansetron 4 Mg/2 Ml Inj IV Q8H PRN Nausea And Vomiting Pantoprazole Sodium 20 mg 04/27/22 10:00 05/06/22 10:32 Pantoprazole 20 Mg Tab PO 20 mg QDAY YASH Administration Quetiapine Fumarate 100 mg 04/26/22 22:00 05/06/22 21:01 Quetiapine 100 Mg Tab PO 100 mg HS YASH Administration Sodium Chloride 10 ml 04/26/22 11:00 05/06/22 21:01 Sodium Chloride 0.9% 10 Ml Flush Syringe IV 10 ml BID YASH Administration Sodium Chloride 10 ml 04/26/22 09:53 Sodium Chloride 0.9% 10 Ml Flush Syringe IV PRN PRN LINE FLUSH Thiamine HCl 100 mg 04/27/22 10:00 05/06/22 10:32 Thiamine 100 Mg Tab PO 100 mg QDAY YASH Administration Nutrition/Malnutrition Assess - Dietary Evaluation Nutrition/Malnutrition Findings: Nutrition Notes Start: 04/26/22 15:10 Freq: Status: Active Protocol: Document 05/03/22 15:41 CM (Rec: 05/03/22 15:52 CM [id number]) Co-Sign 05/03/22 15:41 WW Nutrition Notes Initial or Follow up Reassessment Current Diagnosis Acute Kidney Injury, Hypertension Other Pertinent Diagnosis Acute colitis Current Diet GI Soft + Nepro TID Labs/Tests 05/03: Cl 111.6 BUN 26 Cr 1.4 Pertinent Medications 05/03: Thiamine Height 5 ft 8 in Weight 58.7 kg [place] Body Weight (kg) 70.00 BMI 19.6 Intake Prior to Admission Good Weight change and time frame 5.2% weight gain since 04/30 assessment. Weight Status Appropriate Subjective/Other Information RD follow-up per protocol. Pt lunch 75% consumed at visit . 3 Nepros consumed today per RN . No updated % in ADL notes at this time. GI bleed thought to be related to hemorrhoids per progress notes. Percent of energy/protein needs met: GI soft diet provides 2000 kcal / 82g PRO q day (97%/117% ) Burn Absent Trauma Absent GI Symptoms None Food Allergy No Current % PO Good (75-100%) #1 Nutrition Diagnosis Malnutrition Diagnosis Progress(for reassessment Improved documentation) Is patient on ventilator? No Is Patient Ambulatory and/or Out of Bed No REE-([facility]-confined to bed) 1633.140 Kcal/Kg value to use for calculation 35 Approximate Energy Requirements Using 2054 kcal/Kg Calculation Used for Recommendations Kcal/kg Additional Notes 0.8-1.2g/kg ABW; 47-70g PRO q day Fluid needs: 1mL/kg or per MD Nutrition Intervention Change Diet Order: Recommend changing diet order to renal diet as tolerable (if no GI bleed is present) Add Supplement/Snack (indicate name/kcal Nepro TID /protein ) Provides kCal: 1,275 Provides Protein (gm) 57 Goal #1 Pt to consume >75% of estimated energy/protein needs through current diet order / supplementation. Goal #2 Pt to maintain current wt status within 2.5% during LOS. Follow-Up By: 05/10/22 Additional Comments Monitor %PO intake, wt status, and nutrition-related lab values.
[2022-05-07] MEDS: THIAMINE 100 MG TAB PO SCH (09:25)
[2022-05-07] MEDS: DULoxetine 20 MG CAP PO SCH (09:25)
[2022-05-07] MEDS: PANTOPRAZOLE 20 MG TAB PO SCH (09:25)
[2022-05-07] MEDS: levoFLOXacin 750 MG TAB PO SCH (09:26)
--- NOTE | 2022-05-07 13:01 | Event Note ---
Date: 05/07/22 Patient had paroxysmal A. fib with rapid ventricular rate heart rate in 110s to 120s Start low-dose metoprolol, not a candidate for chronic anticoagulation due to rectal bleeding and anemia Consulted cardiology discussed with office manager receptionist Dr. Tadeo, check echocardiogram for LV function ejection fraction, We will closely monitor the patient and adjust the management, follow cardiology evaluation recommendations Plan of care reviewed with the patient, patient's nurse and the case management we will hold the discharge
[2022-05-07] MEDS: QUEtiapine 100 MG TAB PO SCH (21:19)
[2022-05-07] MEDS: METOPROLOL TARTRATE 25 MG TAB PO SCH (21:20)
[2022-05-07] MEDS: SODIUM CHLORIDE 0.9% 1000 ML 1,000 ML IV SCH (21:34)
[2022-05-08] MEDS: MIDODRINE 10 MG TAB PO SCH ×2 (08:00→10:59)
--- NOTE | 2022-05-08 10:35 | Progress Note ---
Assessment and Plan Assessment and plan: 61y/o WM with h/o HTN, possible dementia and on antidepressant presented to ER from [facility] [place] with rectal bleeding. H/H stable, evaluated by GI but no plan for endoscopy. Plan to monitor with PPI. Patient did have streak of blood with stool following admission - thought for hemorrhoids, started on steroid [place]. Cont abx for colitis. Patient was hypotensive started on midodrine , blood pressures improved, patient was asymptomatic. -- GI bleed/rectal bleeding - likely from hemorrhoids Placed on steroid OH, monitor h/h no plan for endoscopy/resolved --Acute colitis, completed 10 days of antibiotics Tolerating GI soft diet, advance as tolerated --h/o depression, cont home meds Supportive care -- HTN, cont coreg Closely monitor blood pressures and adjust as needed --Possible dementia, supportive care --DVT Px, SCD --pending dc to SNF, pending authorization 05/01; SNF placement pending authorization 05/02; DC to SNF authorization pending ; possible placement to personal [place] [facility] tomorrow DC planning per case management ; patient was discharged yesterday unable to go for social reasons Patient is again discharged today, case management tried to contact patient's brother Patient could not be discharged. ; patient is already discharged 2 days ago to be transferred to personal [place] [facility] ,awaiting his brother to take care of the formalities . Multiple phone calls was made by CM unable to contact him, DC planning per case management Patient is medically stable for discharge 05/07; DC planning per case management. Patient is medically stable for discharge orders in the chart. Patient had paroxysmal A. fib with rapid ventricular rate heart rate in 110s to 120s Start low-dose metoprolol, not a candidate for chronic anticoagulation due to rectal bleeding and anemia Consulted cardiology discussed with it trainee Dr. Tadeo, check echocardiogram for LV function ejection fraction, 05/08: Await cardiology consultation. Await echocardiogram. History Interval history: No new issues overnight Hospitalist Physical - Constitutional Vitals: Temp Pulse Resp BP Pulse Ox 98.1 F 107 H 18 96/59 100 05/08/22 04:51 05/08/22 08:41 05/08/22 04:51 05/08/22 04:51 05/08/22 08:41 General appearance: Present: no acute distress, well-nourished - EENT Eyes: Present: PERRL, EOM intact ENT: hearing intact, clear oral mucosa, dentition normal - Neck Neck: Present: supple, normal ROM - Respiratory Respiratory effort: normal Respiratory: bilateral: CTA - Cardiovascular Rhythm: regular Heart Sounds: Present: S1 & S2. Absent: gallop, rub - Extremities Extremities: no ischemia, No edema, Full ROM - Abdominal General gastrointestinal: soft, non-tender, non-distended, normal bowel sounds - Integumentary Integumentary: Present: clear, warm, dry - Neurologic Neurologic: CNII-XII intact, moves all extremities Results - Labs CBC & Chem 7: 05/03/22 04:23 05/03/22 04:23 Labs: Laboratory Last Values WBC 5.5 K/mm3 (4.5-11.0) 04/30/22 04:50 RBC 2.77 M/mm3 (3.65-5.03) L 04/30/22 04:50 Hgb 8.3 gm/dl (11.8-15.2) L 05/03/22 04:23 Hct 24.4 % (35.5-45.6) L 05/03/22 04:23 MCV 93 fl (84-94) 04/30/22 04:50 MCH 30 pg (28-32) 04/30/22 04:50 MCHC 33 % (32-34) 04/30/22 04:50 RDW 15.5 % (13.2-15.2) H 04/30/22 04:50 Plt Count 124 K/mm3 (140-440) L 04/30/22 04:50 Lymph % (Auto) 27.4 % (13.4-35.0) 04/30/22 04:50 [place] % (Auto) 8.9 % (0.0-7.3) H 04/30/22 04:50 Eos % (Auto) 2.4 % (0.0-4.3) 04/30/22 04:50 Baso % (Auto) 0.5 % (0.0-1.8) 04/30/22 04:50 Lymph # (Auto) 1.5 K/mm3 (1.2-5.4) 04/30/22 04:50 [place] # (Auto) 0.5 K/mm3 (0.0-0.8) 04/30/22 04:50 Eos # (Auto) 0.1 K/mm3 (0.0-0.4) 04/30/22 04:50 Baso # (Auto) 0.0 K/mm3 (0.0-0.1) 04/30/22 04:50 Seg Neutrophils % 60.8 % (40.0-70.0) 04/30/22 04:50 Seg Neutrophils # 3.4 K/mm3 (1.8-7.7) 04/30/22 04:50 PT 16.4 Sec. (12.2-14.9) H 04/26/22 04:42 INR 1.15 (0.87-1.13) H 04/26/22 04:42 Sodium 140 mmol/L (137-145) 05/02/22 05:43 Potassium 4.1 mmol/L (3.6-5.0) 05/02/22 05:43 Chloride 111.6 mmol/L (98-107) H 05/02/22 05:43 Carbon Dioxide 22 mmol/L (22-30) 05/02/22 05:43 Anion Gap 11 mmol/L 05/02/22 05:43 BUN 26 mg/dL (9-20) H 05/02/22 05:43 Creatinine 1.2 mg/dL (0.8-1.3) 05/03/22 04:23 Estimated GFR > 60 ml/min 05/03/22 04:23 BUN/Creatinine Ratio 19 % 05/02/22 05:43 Glucose 88 mg/dL (75-100) 05/02/22 05:43 POC Glucose 98 mg/dL (70-105) 04/26/22 17:09 Lactic Acid 1.90 mmol/L (0.7-2.0) 04/26/22 04:42 Calcium 7.9 mg/dL (8.4-10.2) L 05/02/22 05:43 Total Bilirubin 0.40 mg/dL (0.1-1.2) 04/26/22 03:42 AST 20 units/L (5-40) 04/26/22 03:42 ALT 10 units/L (7-56) 04/26/22 03:42 Alkaline Phosphatase 140 units/L (35-129) H 04/26/22 03:42 Total Protein 6.2 g/dL (6.3-8.2) L 04/26/22 03:42 Albumin 2.8 g/dL (3.9-5) L 04/26/22 03:42 Albumin/Globulin Ratio 0.8 % 04/26/22 03:42 Lipase 57 units/L (13-60) 04/26/22 03:42 Coronavirus (PCR) Negative (Negative) 04/28/22 11:32 Pizano/IV: Voiding Method Condom Catheter Active Medications - Current Medications Current Medications: Generic Name Dose Route Start Last Admin Trade Name Freq PRN Reason Stop Dose Admin Acetaminophen 650 mg 04/26/22 09:53 05/06/22 21:00 Acetaminophen 325 Mg Tab PO 650 mg Q4H PRN Administration Pain MILD(1-3)/Fever >100.5/JONES Duloxetine HCl 20 mg 04/27/22 10:00 05/07/22 09:25 Duloxetine 20 Mg Cap PO 20 mg QDAY YASH Administration Hydrocortisone Acetate 1 applic 04/29/22 12:44 Hydrocortisone 2.5% Rect Cream 28.35 Gm [place] Q8H PRN Hemorrhoids Sodium Chloride 1,000 mls @ 125 mls/hr 04/26/22 17:00 05/07/22 21:34 Nacl 0.9% 1000 Ml IV 100 mls/hr DIRECT YASH Administration Metoprolol Tartrate 12.5 mg 05/07/22 22:00 05/07/22 21:20 Metoprolol Tartrate 25 Mg Tab PO 12.5 mg BID YASH Administration Midodrine 10 mg 05/03/22 12:00 05/07/22 15:43 Midodrine 10 Mg Tab PO 10 mg TID@0800,1200,1600 YASH Administration Morphine Sulfate 2 mg 04/26/22 09:53 05/07/22 06:07 Morphine 2 Mg/1 Ml Inj IV 2 mg Q4H PRN Administration Pain, Moderate (4-6) Ondansetron HCl 4 mg 04/26/22 09:53 Ondansetron 4 Mg/2 Ml Inj IV Q8H PRN Nausea And Vomiting Pantoprazole Sodium 20 mg 04/27/22 10:00 05/07/22 09:25 Pantoprazole 20 Mg Tab PO 20 mg QDAY YASH Administration Quetiapine Fumarate 100 mg 04/26/22 22:00 05/07/22 21:19 Quetiapine 100 Mg Tab PO 100 mg HS YASH Administration Sodium Chloride 10 ml 04/26/22 11:00 05/07/22 21:38 Sodium Chloride 0.9% 10 Ml Flush Syringe IV 10 ml BID YASH Administration Sodium Chloride 10 ml 04/26/22 09:53 Sodium Chloride 0.9% 10 Ml Flush Syringe IV PRN PRN LINE FLUSH Thiamine HCl 100 mg 04/27/22 10:00 05/07/22 09:25 Thiamine 100 Mg Tab PO 100 mg QDAY YASH Administration Nutrition/Malnutrition Assess - Dietary Evaluation Nutrition/Malnutrition Findings: Nutrition Notes Start: 04/26/22 1 5:10 Freq: Status: Active Protocol: Document 05/03/22 15:41 CM (Rec: 05/03/22 15:52 CM [id number]) Co-Sign 05/03/22 15:41 WW Nutrition Notes Initial or Follow up Reassessment Current Diagnosis Acute Kidney Injury, Hypertension Other Pertinent Diagnosis Acute colitis Current Diet GI Soft + Nepro TID Labs/Tests 05/03: Cl 111.6 BUN 26 Cr 1.4 Pertinent Medications 05/03: Thiamine Height 5 ft 8 in Weight 58.7 kg [place] Body Weight (kg) 70.00 BMI 19.6 Intake Prior to Admission Good Weight change and time frame 5.2% weight gain since 04/30 assessment. Weight Status Appropriate Subjective/Other Information RD follow-up per protocol. Pt lunch 75% consumed at visit . 3 Nepros consumed today per RN . No updated % in ADL notes at this time. GI bleed thought to be related to hemorrhoids per progress notes. Percent of energy/protein needs met: GI soft diet provides 2000 kcal / 82g PRO q day (97%/117% ) Burn Absent Trauma Absent GI Symptoms None Food Allergy No Current % PO Good (75-100%) #1 Nutrition Diagnosis Malnutrition Diagnosis Progress(for reassessment Improved documentation) Is patient on ventilator? No Is Patient Ambulatory and/or Out of Bed No REE-([facility]-confined to bed) 1633.140 Kcal/Kg value to use for calculation 35 Approximate Energy Requirements Using 5 kcal/Kg Calculation Used for Recommendations Kcal/kg Additional Notes 0.8-1.2g/kg ABW; 47-70g PRO q day Fluid needs: 1mL/kg or per MD Nutrition Intervention Change Diet Order: Recommend changing diet order to renal diet as tolerable (if no GI bleed is present) Add Supplement/Snack (indicate name/kcal Nepro TID /protein ) Provides kCal: 1,275 Provides Protein (gm) 57 Goal #1 Pt to consume >75% of estimated energy/protein needs through current diet order / supplementation. Goal #2 Pt to maintain current wt status within 2.5% during LOS. Follow-Up By: 05/10/22 Additional Comments Monitor %PO intake, wt status, and nutrition-related lab values.
[2022-05-08] MEDS: DULoxetine 20 MG CAP PO SCH (10:58)
[2022-05-08] MEDS: PANTOPRAZOLE 20 MG TAB PO SCH (10:59)
[2022-05-08] MEDS: THIAMINE 100 MG TAB PO SCH (10:59)
[2022-05-08] MEDS: METOPROLOL TARTRATE 25 MG TAB PO SCH ×2 (11:02→21:34)
--- NOTE | 2022-05-08 12:48 | Consultation ---
History of Present Illness Consult date: 05/08/22 Consult reason: atrial fibrillation History of present illness: The patient is a 61-year-old man who is reported with chronic dementia, lives in a fci. He is unable to provide a history, and there are no previous records in the hospital system. He was ostensibly admitted to this hospital 12 days ago with rectal bleeding. He was evaluated by gastroenterology, and recommended for conservative management. My review of his laboratory exam shows persistent anemia with a hematocrit of 27 on presentation, currently 24. Prior to his planned discharge, the discharging hospitalist noted the patient with a persistent atrial fibrillation and flutter since his presentation. Cardiology consultation is requested for further evaluation. The patient has not been reported with any chest pain, shortness of breath or palpitations. There is no record of the chronicity of his atrial arrhythmias. On presentation, there is no record of oral anticoagulation or oral antiplatelet therapy. ECGs show mostly an atrial flutter with variable AV conduction, and overall well-controlled ventricular rate despite the absence of significant AV eric blocking agents. A chest x-ray is not available for review. Past History Past Medical History: anemia, other (Dementia) Medications and Allergies Allergies Allergy/AdvReac Type Severity Reaction Status Date / Time No Known Allergies Allergy Verified 04/26/22 04:02 Home Medications Medication Instructions Recorded Confirmed Last Taken Type Docusate Sodium [Colace ORAL LIQ] 100 mg PO QDAY 04/26/22 04/26/22 Unknown History Duloxetine HCl [Cymbalta] 20 mg PO QDAY 04/26/22 04/26/22 Unknown History QUEtiapine [SEROquel] 100 mg PO HS 04/26/22 04/26/22 Unknown History Hydrocortisone 2.5% [Proctosol-Hc] 1 applic [place] Q8H PRN #1 tube 05/04/22 Unknown Rx Midodrine [Proamatine] 10 mg PO TID@0800,1200,1600 #30 05/04/22 Unknown Rx tablet Pantoprazole [Protonix TAB] 20 mg PO QDAY #30 05/04/22 Unknown Rx Thiamine [Vitamin B-1] 100 mg PO QDAY #30 05/04/22 Unknown Rx levoFLOXacin [Levaquin TAB] 750 mg PO Q24HR #3 tablet 05/04/22 Unknown Rx metroNIDAZOLE [Flagyl TAB] 500 mg PO Q8HR #9 tablet 05/04/22 Unknown Rx Active Meds: Active Medications Acetaminophen (Acetaminophen 325 Mg Tab) 650 mg PO Q4H PRN PRN Reason: Pain MILD(1-3)/Fever >100.5/JONES Last Admin: 05/06/22 21:00 Dose: 650 mg Duloxetine HCl (Duloxetine 20 Mg Cap) 20 mg PO QDAY [facility] Last Admin: 05/08/22 10:58 Dose: 20 mg Hydrocortisone Acetate (Hydrocortisone 2.5% Rect Cream 28.35 Gm) 1 applic [place] Q8H PRN PRN Reason: Hemorrhoids Sodium Chloride (Nacl 0.9% 1000 Ml) 1,000 mls @ 125 mls/hr IV DIRECT [facility] Last Admin: 05/07/22 21:34 Dose: 100 mls/hr Metoprolol Tartrate (Metoprolol Tartrate 25 Mg Tab) 12.5 mg PO BID [facility] Last Admin: 05/08/22 11:02 Dose: 12.5 mg Midodrine (Midodrine 10 Mg Tab) 10 mg PO TID@0800,1200,1600 [facility] Last Admin: 05/08/22 10:59 Dose: 10 mg Morphine Sulfate (Morphine 2 Mg/1 Ml Inj) 2 mg IV Q4H PRN PRN Reason: Pain, Moderate (4-6) Last Admin: 05/07/22 06:07 Dose: 2 mg Ondansetron HCl (Ondansetron 4 Mg/2 Ml Inj) 4 mg IV Q8H PRN PRN Reason: Nausea And Vomiting Pantoprazole Sodium (Pantoprazole 20 Mg Tab) 20 mg PO QDAY [facility] Last Admin: 05/08/22 10:59 Dose: 20 mg Quetiapine Fumarate (Quetiapine 100 Mg Tab) 100 mg PO HS [facility] Last Admin: 05/07/22 21:19 Dose: 100 mg Sodium Chloride (Sodium Chloride 0.9% 10 Ml Flush Syringe) 10 ml IV BID [facility] Last Admin: 05/08/22 11:00 Dose: 10 ml Sodium Chloride (Sodium Chloride 0.9% 10 Ml Flush Syringe) 10 ml IV PRN PRN PRN Reason: LINE FLUSH Thiamine HCl (Thiamine 100 Mg Tab) 100 mg PO QDAY [facility] Last Admin: 05/08/22 10:59 Dose: 100 mg Review of Systems ROS unobtainable: due to mental status Physical Examination Vital Signs Pulse Resp BP Pulse Ox 119 H 13 98/60 99 04/26/22 06:31 04/26/22 06:31 04/26/22 06:31 04/26/22 06:31 General appearance: no acute distress, cachectic HEENT: Positive: PERRL Neck: Positive: neck supple Cardiac: Positive: irregularly irregular Lungs: Positive: Decreased Breath Sounds Neuro: Positive: Grossly Intact Abdomen: Positive: Soft Male genitourinary: Positive: deferred Skin: Positive: Clear Extremities: Absent: edema Results 05/03/22 04:23 05/03/22 04:23 EKG interpretations - Telemetry EKG Rhythm: Atrial Flutter (With variable AV conduction) Assessment and Plan - Patient Problems (1) Atrial flutter Current Visit: Yes Status: Acute Plan to address problem: Patient noted with atrial flutter, variable AV conduction, with overall well- controlled ventricular rate without significant AV eric blocking agents. The chronicity of his atrial flutter is unknown. We recommend judicious use of very low-dose AV eric blockers as needed, due to evidence of underlying conduction system disease. An echocardiogram for left ventricular function assessment and left atrial size. Chest x-ray and a thyroid profile. With his current clinical profile of GI bleed and severe anemia, he is not a candidate for oral anticoagulation or oral antiplatelet until full GI evaluation is completed and the anemia is corrected.
--- NOTE | 2022-05-08 15:44 | XRay Report ---
CHEST 1 VIEW INDICATION / CLINICAL INFORMATION: AF STUDY TIME: 1255 COMPARISON: None available. FINDINGS: SUPPORT DEVICES: None HEART / MEDIASTINUM: No significant abnormality. LUNGS / PLEURA: Congestion is noted with mild interstitial edema. Focal density is asymmetric in the right base and may represent focal pneumonitis. No definite pleural effusions. No pneumothorax. ADDITIONAL FINDINGS: No significant additional findings. Signer Name: Balwinder Boykin MD Signed: 05/08/2022 3:40 PM Workstation Name: [id number]
[2022-05-08] MEDS: QUEtiapine 100 MG TAB PO SCH (21:33)
[2022-05-09] MEDS ORDERED: SODIUM CHLORIDE 0.9% 250ML 250 ML IV ONE (04:27)
--- NOTE | 2022-05-09 08:53 | Discharge Summary ---
Providers - Providers Date of Admission: 04/26/22 09:53 Date of discharge: 05/09/22 Attending physician: MOSES ALLISON 04/26/22 09:59 Consult to Physician [CONS] Urgent Comment: Consulting Provider: SARI FORD Physician Instructions: Reason For Exam: GI bleeding 04/27/22 09:27 Occupational Therapy Evaluate and Treat [CONS] Routine Comment: OT eval and treat Reason For Exam: debility Physical Therapy Evaluation and Treat [CONS] Routine Comment: Pt eval and treat Reason For Exam: debility 05/07/22 20:47 Consult to Physician [CONS] Routine Comment: Consulting Provider: LUIS F BRANCH Physician Instructions: Reason For Exam: Paroxysmal A. fib with rapid ventricular rate Primary care physician: [facility] Hospitalization Reason for admission: rectal bleeding Condition: Stable Hospital course: 61y/o WM with h/o HTN, possible dementia and on antidepressant presented to ER [place] [facility] [place]. H/H stable, evaluated by GI but no plan for endoscopy. Plan to monitor with PPI. Patient did have streak of blood with stool following admission - thought for hemorrhoids, started on steroid ID. The patient was started on abx for colitis. Patient was hypotensive started on midodrine , blood pressures improved, patient was asymptomatic. The patient was treated for 10 days of antibiotics that were completed. Patient tolerated soft diet and was advanced to regular diet per GI. The patient resume medications for hypertension and depression. Case management was consulted for possible discharge to SNF placement pending authorization. Hospital course 05/01; SNF placement pending authorization 05/02; DC to SNF authorization pending ; possible [facility] tomorrow DC planning per case management ; patient was discharged yesterday unable to go for social reasons Patient is again discharged today, case management tried to contact patient's brother Patient could not be discharged. ; patient is already discharged 2 days ago to be transferred to [facility] ,awaiting his brother to take care of the formalities . Multiple phone calls was made by CM unable to contact him, DC planning per case management Patient is medically stable for discharge 05/07; DC planning per case management. Patient is medically stable for discharge orders in the chart. Patient had paroxysmal A. fib with rapid ventricular rate heart rate in 110s to 120s Start low-dose metoprolol, not a candidate for chronic anticoagulation due to rectal bleeding and anemia Consulted cardiology discussed with entry analyst Dr. Branch, check echocardiogram for LV function ejection fraction, 05/08: Cardiology evaluated the patient and noted atrial flutter with variable AV conduction with overall well controlled ventricular rate without significant AV eric blocking agents. Cardiology recommended judicious use of very low dose AV eric blockers as needed. Given the GI bleed and severe anemia patient is not a candidate for anticoagulation per cardiology until full GI evaluation or anemia is corrected. Echocardiogram revealed left ventricular borderline dilated with systolic function EF 55% and normal left ventricular wall thickness. The left and right atria are moderately dilated. Moderate severe mitral regurgitation. RVSP 30-35 mmHg. 05/09: Patient is felt to receive maximal hospital benefit will be discharged to [facility]. Patient will discharge on low-dose metoprolol 12.5 mg p.o. twice daily and no anticoagulation. Patient should follow-up with GI as an outpatient. Dedicated discharge time 35 minutes Disposition: HOME HEALTH CARE SERVICE Final Discharge Diagnosis (Prints w/discharge instructions): Atrial flutter with variable AV conduction, colitis, GI bleed/rectal bleeding, hemorrhoids, hypertension, possible dementia, depression Core Measure Documentation - Palliative Care Palliative Care/ Comfort Measures: Not Applicable - Core Measures Any of the following diagnoses?: none Exam - Constitutional Vitals: Temp Pulse Resp BP Pulse Ox 98.4 F 88 18 116/77 100 05/09/22 08:13 05/09/22 08:13 05/09/22 08:13 05/09/22 08:13 05/09/22 08:13 General appearance: Present: no acute distress, well-nourished - EENT Eyes: Present: PERRL ENT: hearing intact, clear oral mucosa - Neck Neck: Present: supple, normal ROM - Respiratory Respiratory effort: normal Respiratory: bilateral: CTA - Cardiovascular Heart Sounds: Present: S1 & S2. Absent: rub, click - Extremities Extremities: pulses symmetrical, No edema Peripheral Pulses: within normal limits - Abdominal General gastrointestinal: Present: soft, non-tender, non-distended, normal bowel sounds Male genitourinary: Present: normal - Integumentary Integumentary: Present: clear, warm, dry - Musculoskeletal Musculoskeletal: gait normal, strength equal bilaterally - Psychiatric Psychiatric: appropriate mood/affect, intact judgment & insight - Neurologic Neurologic: CNII-XII intact, moves all extremities Plan Activity: advance as tolerated Weight Bearing Status: Weight Bear as Tolerated Diet: regular Follow up with: SARI FORD MD [Staff Physician] - 14 Days PRIMARY CARE, [Primary Care Provider] - 7 Days Forms: Accompanied Note Prescriptions: metroNIDAZOLE [Flagyl TAB] 500 mg PO Q8HR #9 tablet levoFLOXacin [Levaquin TAB] 750 mg PO Q24HR #3 tablet Midodrine [Proamatine] 10 mg PO TID@0800,1200,1600 #30 tablet Hydrocortisone 2.5% [Proctosol-Hc] 1 applic ID Q8H PRN #1 tube PRN Reason: Hemorrhoids Pantoprazole [Protonix TAB] 20 mg PO QDAY #30 Thiamine [Vitamin B-1] 100 mg PO QDAY #30
[2022-05-09] MEDS: PANTOPRAZOLE 20 MG TAB PO SCH (11:04)
[2022-05-09] MEDS: DULoxetine 20 MG CAP PO SCH (11:04)
[2022-05-09] MEDS: MIDODRINE 10 MG TAB PO SCH ×3 (11:04→17:06)
[2022-05-09] MEDS: THIAMINE 100 MG TAB PO SCH (11:04)
[2022-05-09] MEDS: METOPROLOL TARTRATE 25 MG TAB PO SCH (11:04)
--- NOTE | 2022-05-09 15:05 | Progress Note ---
Assessment and Plan - Patient Problems (1) Atrial flutter Current Visit: Yes Status: Acute Plan to address problem: Patient noted with atrial flutter, variable AV conduction, with overall well- controlled ventricular rate without significant AV eric blocking agents. The chronicity of his atrial flutter is unknown. We recommend judicious use of very low-dose AV eric blockers as needed, due to evidence of underlying conduction system disease. An echocardiogram for left ventricular function assessment and left atrial size. Chest x-ray and a thyroid profile. With his current clinical profile of GI bleed and severe anemia, he is not a candidate for oral anticoagulation or oral antiplatelet until full GI evaluation is completed and the anemia is corrected. Subjective Date of service: 05/09/22 Principal diagnosis: Rectal bleeding, atrial fibrillation Interval history: Patient is comfortable, no new cardiac complaints. On model maker plaster, he has atrial fibrillation with a well-controlled ventricular rate in the 90s. Objective Vital Signs Temp Pulse Resp BP BP Pulse Ox 05/09/22 11:04 112/69 05/09/22 11:02 97.9 F 108 H 16 112/69 97 05/09/22 10:00 96 H 100 05/09/22 08:13 98.4 F 88 18 116/77 100 05/09/22 05:28 98.4 F 91 H 18 81/63 97 05/09/22 05:15 84 20 84/50 93 05/09/22 05:03 80 18 82/46 96 05/09/22 04:51 80 18 82/46 96 05/08/22 23:10 98.1 F 105 H 18 102/65 95 05/08/22 20:07 100 05/08/22 19:56 95 H 05/08/22 19:25 98.7 F 113 H 18 102/66 96 05/08/22 17:38 97.5 F L 95 H 18 110/69 99 - Physical Examination General: No Apparent Distress HEENT: Positive: PERRL Neck: Positive: neck supple Cardiac: Positive: irregularly irregular Lungs: Positive: Decreased Breath Sounds Neuro: Positive: Grossly Intact Abdomen: Positive: Soft Skin: Positive: Clear Extremities: Absent: edema
[2022-05-09 16:01] VITALS: BP 110/64
== END 2022-05-09 18:35 | DRG 393 ==
LOC: ED 03:10 → 4A 09:53
PROVIDERS: ADMIT Internal Medicine; ATTEND Hospitalist
DX: K64.9 Unspecified hemorrhoids (principal); E43 Unspecified severe protein-calorie malnutrition; I48.92 Unspecified atrial flutter; K52.9 Noninfective gastroenteritis and colitis, unspecified; Z20.822 Contact with and (suspected) exposure to COVID-19; K74.60 Unspecified cirrhosis of liver; D50.0 Iron deficiency anemia secondary to blood loss (chronic); I86.8 Varicose veins of other specified sites; F32.A Depression, unspecified; F03.90 Unspecified dementia, unspecified severity, without behavioral disturbance, psychotic disturbance, mood disturbance, and anxiety
CPT/HCPCS: 36415; 71045; 74177; 80048; 80053; 82140; 82565; 82962; 83690; 84443; 85014; 85018; 85025; 85027; 85610; 93005; 93306; 99285; G0378; C8929; C9113; J2270; J7030; J7050; Q9967; U0003